=== PATIENT | male | born 1985 | race Caucasian/White ===

== ENCOUNTER 2017-10-15 22:24 | Emergency (ER) | payer OTHER ==
[2017-10-15] MEDS ORDERED: PANTOPRAZOLE 40 MG/10 ML VIAL IVP STA (22:26)
[2017-10-15] MEDS ORDERED: ONDANSETRON 4 MG/2 ML VIAL IVP STA (22:26)
[2017-10-15] MEDS ORDERED: SODIUM CHLORIDE 0.9% 500 ML IV STA (22:26)
--- NOTE | 2017-10-15 22:33 | ED ---
General Adult HPI - General Chief complaint: Overdose Stated complaint: Overdose Time Seen by Provider: 10/15/17 22:26 Source: patient, EMS, RN notes reviewed, old records reviewed Mode of arrival: EMS Limitations: no limitations - History of Present Illness Initial comments: This is a 30-year-old male to the ER for evaluation of possible overdose, patient does admit to heroin abuse stay. Patient was found by PD to mildly responsive) U saw minus girlfriend which she thought unresponsive. Patient was not needed to be given heroin. Patient's awake alert on arrival to ER, denies any other drugs or alcohol. Patient is no complaints not homicidal or suicidal - Related Data Home Medications Medication Instructions Recorded Confirmed Buprenorphine HCl/Naloxone HCl 1 each SL BID 10/06/14 10/06/14 [Suboxone 8 mg-2 mg Sl Film] Allergies Allergy/AdvReac Type Severity Reaction Status Date / Time Penicillins Allergy Unknown Verified 10/15/17 22:30 Review of Systems ROS Statement: Those systems with pertinent positive or pertinent negative responses have been documented in the HPI. ROS Other: All systems not noted in ROS Statement are negative. Past Medical History Past Medical History: No Reported History History of Any Multi-Drug Resistant Organisms: None Reported Past Surgical History: No Surgical Hx Reported Past Psychological History: No Psychological Hx Reported Smoking Status: Current every day smoker Past Alcohol Use History: Rare Past Drug Use History: Heroin, Marijuana General Exam Limitations: no limitations General appearance: alert, in no apparent distress Head exam: Present: atraumatic, normocephalic, normal inspection Eye exam: Present: normal appearance, PERRL, EOMI. Absent: scleral icterus, conjunctival injection, periorbital swelling ENT exam: Present: normal exam, mucous membranes moist Neck exam: Present: normal inspection. Absent: tenderness, meningismus, lymphadenopathy Respiratory exam: Present: normal lung sounds bilaterally. Absent: respiratory distress, wheezes, rales, rhonchi, stridor Cardiovascular Exam: Present: regular rate, normal rhythm, normal heart sounds. Absent: systolic murmur, diastolic murmur, rubs, gallop, clicks GI/Abdominal exam: Present: soft, normal bowel sounds. Absent: distended, tenderness, guarding, rebound, rigid Extremities exam: Present: normal inspection, full ROM, normal capillary refill. Absent: tenderness, pedal edema, joint swelling, calf tenderness Back exam: Present: normal inspection Neurological exam: Present: alert, oriented X3, CN II-XII intact Psychiatric exam: Present: normal affect, normal mood Skin exam: Present: warm, dry, intact, normal color. Absent: rash Course Vital Signs 10/15/17 22:26 Temperature 98.6 F Pulse Rate 111 H Respiratory 18 Rate Blood Pressure 176/98 O2 Sat by Pulse 94 L Oximetry - Reevaluation(s) Reevaluation #1: 10/15/17 22:32 Patient's awake and alert without any difficulty of shortness of breath or lethargy Medical Decision Making - Medical Decision Making 32 male the ER positive heroin overdose, history of heroin abuse has abuse heroin today, patient refusing a treatment here in the emergency room, patient informed of leg test with heroin use and heroin overdose. Patient understands serious disease and can be discharged home Disposition Clinical Impression: Suicide attempt by multiple drug overdose, Poisoning by opiate or related narcotic Disposition: HOME SELF-CARE Condition: Good Instructions: Narcotic Abuse (ED) Is patient prescribed a controlled substance at d/c from ED?: No Referrals: None,Stated [Primary Care Provider] - 1-2 days
[2017-10-15 23:40] VITALS: BP 152/91; PULSE 81; RESP 16; TEMP 97.2
== END 2017-10-15 23:39 | disposition home or self-care (01) ==
LOC: EC 22:24
DX: T40.1X2A Poisoning by heroin, intentional self-harm, initial encounter (principal); F17.200 Nicotine dependence, unspecified, uncomplicated; Z88.0 Allergy status to penicillin; Z79.891 Long term (current) use of opiate analgesic
CPT/HCPCS: 96360; 99284

== ENCOUNTER 2020-03-02 18:55 | Observation (INO) | payer OTHER ==
[2020-03-02] MEDS ORDERED: SULFAMETHOX-TMP 800-160MG 1 EACH TAB PO STA ×2 (19:44→20:05)
[2020-03-02] MEDS ORDERED: SULFAMETH-TMP DS STARTER PACK 2 TAB BTL PO STA ×2 (19:44→20:05)
[2020-03-02 19:46] LABS: Basophils # (A) 0.1 k/uL (0-0.2); Basophils % (A) 1 %; Eosinophils # (A) 0.2 k/uL (0-0.7); Eosinophils % (A) 3 %; Lymphocytes # (A) 1.7 k/uL (1.0-4.8); Lymphocytes % (A) 26 %; MCH 28.8 pg (25.0-35.0); MCHC 31.8 g/dL (31.0-37.0); MCV 90.5 fL (80.0-100.0); Mean Platelet Volume 7.9; Monocytes # (A) 0.3 k/uL (0-1.0); Monocytes % (A) 5 %; Neutrophils % (A) 62 %; Platelet Count 324 k/uL (150-450); RBC 4.53 m/uL (4.30-5.90); RDW 13.4 % (11.5-15.5); WBC 6.4 k/uL (3.8-10.6)
[2020-03-02] MEDS ORDERED: cefTRIAXone IN SWFI 1,000 MG/10 ML SYRINGE IVP STA (19:46)
[2020-03-02 19:55] LABS: ALT 69 U/L (4-49); AST 103 U/L (17-59); African American GFR (CKD) >90 (>60 ml/min/1.73 sqM); Alkaline Phosphatase 79 U/L (38-126); Anion Gap 6 mmol/L; Blood Urea Nitrogen 17 mg/dL (9-20); Carbon Dioxide 30 mmol/L (22-30); Chloride 103 mmol/L (98-107); Glucose 66 mg/dL (74-99); Non-African American GFR(CKD) >90 (>60 ml/min/1.73 sqM); Potassium 4.4 mmol/L (3.5-5.1); Sodium 139 mmol/L (137-145); Total Bilirubin 0.3 mg/dL (0.2-1.3); Total Protein 7.1 g/dL (6.3-8.2)
[2020-03-02 19:56] LABS: Calcium 9.1 mg/dL (8.4-10.2)
--- NOTE | 2020-03-02 20:05 | XR ---
EXAMINATION TYPE: XR forearm RT DATE OF EXAM: 03/02/2020 COMPARISON: NONE HISTORY: Pain and swelling TECHNIQUE: 2 views FINDINGS: I see no fracture nor dislocation. Elbow joint and wrist joint appear intact. Soft tissues appear normal. IMPRESSION: Negative right forearm exam.
--- NOTE | 2020-03-02 20:54 | US ---
EXAMINATION TYPE: US venous doppler duplex UE RT DATE OF EXAM: 03/02/2020 COMPARISON: NONE CLINICAL HISTORY: r/o dvt, svt, fluid collection . Right arm swelling and pain. No hx of DVT. Patient does not take blood thinners. Patient used heroin 3 days ago in right arm. SIDE PERFORMED: Right Right Arm: No evidence of DVT in veins imaged at this time within the right arm. IMPRESSION: No sign of deep vein thrombosis in the right arm.
--- NOTE | 2020-03-02 21:24 | ED ---
General Adult HPI - General Source: patient, RN notes reviewed, old records reviewed Mode of arrival: ambulatory Limitations: no limitations <Mihir Kirkpatrick - Last Filed: 03/02/20 21:45> <Kerri Cornejo - Last Filed: 03/05/20 21:55> - General Chief complaint: Extremity Problem,Nontraumatic Stated complaint: rt arm swelling, pain Time Seen by Provider: 03/02/20 19:09 - History of Present Illness Initial comments: 34-year-old male patient to ED for evaluation. Patient is 89 drug user. Patient reports that he injects IV drugs in his right arm. Patient reports the last 2 days having significant pain and swelling in his right arm distal radius region. Patient denies immunocompromised state, denies HIV or a spleen isn't. Denies fevers. Denies systemic symptoms. Denies any other complaints. Systemic: Pt denies fatigue, fever/chills, rash. Pt denies weakness, night sweats, weight loss. Neuro: Pt denies headache, visual disturbances, syncope or pre-syncope. HEENT: Pt denies ocular discharge or irritation, otalgia, rhinorrhea, pharyngitis or notable lymphadenopathy. Cardiopulmonary: Pt denies chest pain, SOB, heart palpitations, dyspnea on exertion. Abdominal/GI: Pt denies abdominal pain, n/v/d. : Pt denies dysuria, burning w/ urination, frequency/urgency. Denies new onset urinary or bowel incontinence. MSK: Pt denies myalgia, loss of strength or function in extremities. Neuro: Pt denies new onset weakness, paresthesias. (Mihir Kirkpatrick) - Related Data Previous Rx's Medication Instructions Recorded Cephalexin [Keflex] 500 mg PO Q12HR 1 Days #14 cap 03/04/20 Ibuprofen [Motrin] 600 mg PO Q6HR PRN #30 tab 03/04/20 Loperamide [Imodium] 2 mg PO QID PRN #30 cap 03/04/20 Ondansetron [Zofran] 4 mg PO Q8HR PRN #30 tab 03/04/20 Sulfamethox-Tmp 800-160Mg [Bactrim 1 tab PO Q12HR #12 tab 03/04/20 DS 800-160 mg] cloNIDine HCL [Catapres] 0.1 mg PO TID PRN #30 tab 03/04/20 Allergies Allergy/AdvReac Type Severity Reaction Status Date / Time Penicillins Allergy Unknown Verified 03/02/20 19:42 Review of Systems ROS Other: All systems not noted in ROS Statement are negative. <Mihir Kirkpatrick - Last Filed: 03/02/20 21:45> ROS Other: All systems not noted in ROS Statement are negative. <Kerri Cornejo - Last Filed: 03/05/20 21:55> ROS Statement: Those systems with pertinent positive or pertinent negative responses have been documented in the HPI. Past Medical History Past Medical History: No Reported History History of Any Multi-Drug Resistant Organisms: None Reported Past Surgical History: No Surgical Hx Reported Past Psychological History: No Psychological Hx Reported Smoking Status: Current every day smoker Past Alcohol Use History: Rare Past Drug Use History: Heroin, Marijuana <Mihir Kirkpatrick - Last Filed: 03/02/20 21:45> - Past Family History family Family Medical History: No Reported History <Kerri Cornejo - Last Filed: 03/05/20 21:55> General Exam Limitations: no limitations <Mihir Kirkpatrick - Last Filed: 03/02/20 21:45> - General Exam Comments Initial Comments: Constitutional: NAD, AOX3, Pt has pleasant affect. HEENT: NC/AT, trachea midline, neck supple, no lymphadenopathy. Posterior pharynx non erythematous, without exudates. External ears appear normal, without discharge. Mucous membranes moist. Eyes PERRLA, EOM intact. There is no scleral icterus. No pallor noted. Cardiopulmonary: RRR, no murmurs, rubs or gallops, no JVD noted. Lungs CTAB in anterior and posterior stephens. No peripheral edema. Abdominal exam: Abdomen soft and non-distended. Neuro: CN II-XII grossly intact. No nuchal rigidity. MSK: Mild amount of soft tissue swelling and erythema to the palmar aspect of the distal radial forearm. There is no fluctuance. No streaking. Pulses are intact and equal. (Mihir Kirkpatrick) Course Vital Signs 03/02/20 03/02/20 03/02/20 18:57 20:05 22:14 Temperature 98.2 F Pulse Rate 76 77 Respiratory 16 16 16 Rate Blood Pressure 170/93 125/84 O2 Sat by Pulse 100 Oximetry Medical Decision Making - Lab Data Result diagrams: 03/02/20 19:38 03/02/20 19:38 <Mihir Kirkpatrick - Last Filed: 03/02/20 21:45> - Lab Data Result diagrams: 03/04/20 04:35 03/04/20 04:35 <Kerri Cornejo - Last Filed: 03/05/20 21:55> - Medical Decision Making 34-year-old male patient history IV drug use ED for evaluation of some redness to his forearm. Patient does have jugular venous forearm. Ultrasound negative for DVT. Plain film negative for gas or foreign body. There is no physical exam findings consistent with abscess. Patient had a mild rash with penicillin as a child. Has never had severe allergic reactions. Shared decision making neela choi wishes to try ceftriaxone. Pt also administered bactrim. Patient evaluated as well by Dr. Cornejo. Patient will be admitted for IV antibiotics. (Mihir Kirkpatrick) I was available for consultation in the emergency department. The history and physical exam were done by the midlevel provider. I was consulted for this patients care. I reviewed the case with the midlevel provider and based on their presentation of the patient, I agree with the assessment, medical decision making and plan of care as documented. Patient evaluated by myself. Request to hospitalize patient which he agreed to. Chart was dictated using [employer] dictation software. Attempts were made to correct any dictation errors however some typographical errors may persist. Patient was seen during a national state of emergency due to the Covid-19 pandemic. (Kerri Cornejo) - Lab Data Lab Results 03/02/20 03/02/20 03/02/20 Range/Units 19:38 19:38 19:38 WBC 6.4 (3.8-10.6) k/uL RBC 4.53 (4.30-5.90) m/uL Hgb 13.0 (13.0-17.5) gm/dL Hct 41.0 (39.0-53.0) % MCV 90.5 (80.0-100.0) fL MCH 28.8 (25.0-35.0) pg MCHC 31.8 (31.0-37.0) g/dL RDW 13.4 (11.5-15.5) % Plt Count 324 (150-450) k/uL Neutrophils % 62 % Lymphocytes % 26 % Monocytes % 5 % Eosinophils % 3 % Basophils % 1 % Neutrophils # 4.0 (1.3-7.7) k/uL Lymphocytes # 1.7 (1.0-4.8) k/uL Monocytes # 0.3 (0-1.0) k/uL Eosinophils # 0.2 (0-0.7) k/uL Basophils # 0.1 (0-0.2) k/uL Sodium 139 (137-145) mmol/L Potassium 4.4 (3.5-5.1) mmol/L Chloride 103 (98-107) mmol/L Carbon Dioxide 30 (22-30) mmol/L Anion Gap 6 mmol/L BUN 17 (9-20) mg/dL Creatinine 1.06 (0.66-1.25) mg/dL Est GFR (CKD-EPI)AfAm >90 (>60 ml/min/1.73 sqM) Est GFR (CKD-EPI)NonAf >90 (>60 ml/min/1.73 sqM) Glucose 66 L (74-99) mg/dL Plasma Lactic Acid Keaton 1.7 (0.7-2.0) mmol/L Calcium 9.1 (8.4-10.2) mg/dL Total Bilirubin 0.3 (0.2-1.3) mg/dL AST 103 H (17-59) U/L ALT 69 H (4-49) U/L Alkaline Phosphatase 79 (38-126) U/L Total Protein 7.1 (6.3-8.2) g/dL Albumin 4.0 (3.5-5.0) g/dL Disposition Is patient prescribed a controlled substance at d/c from ED?: No <Mihir Kirkpatrick - Last Filed: 03/02/20 21:45> <Kerri Cornejo - Last Filed: 03/05/20 21:55> Clinical Impression: Cellulitis, IV drug user Disposition: ADMITTED IP TO THIS [facility] Condition: Fair
[2020-03-02] MEDS ORDERED: NALOXONE 0.4 MG/ML 1 ML VIAL IV PRN (21:44)
[2020-03-02] MEDS ORDERED: IBUPROFEN 600 MG TAB PO PRN (21:46)
[2020-03-02] MEDS ORDERED: ACETAMINOPHEN TAB 500 MG TAB PO PRN (21:46)
[2020-03-02] MEDS ORDERED: VANCOMYCIN 1,250 MG in SODIUM CHLORIDE 0.9% 250 ML IVPB ONE (22:00)
[2020-03-02] MEDS: MORPHINE SULFATE 2 MG/ML SYRINGE IVP PRN (23:27)
--- NOTE | 2020-03-02 23:31 | P.HPIM ---
History of Present Illness H&P Date: 03/02/20 Chief Complaint: swelling over the right forearm 34 year old male with history of IVDA patient presenting with increase swelling and discomfort over the dorsum of his right forearm, which he noticed over last two days since he injected heroin in his right anticubital fossa. he denies any history of similar conditions. denies any other traumas. denies any bactremia or endocarditis in the past. denies HIV, or hepatitis. denies sharing needles, but he does re-use his own needles. 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 denies any fever, chest pain or trouble breathing. denies any cough , abd pain , nausea or vomiting. Denies any numbness or tingling at his finger tips denies heavy alcohol use, and only admits to occasional social use. he admits to smoking marijuana and tobacco smoking half a pack daily in the ED, blood work unremarkable and vital sings stable, patient admitted for IV antibiotics and close monitoring of his right forearm swelling Review of Systems all systems reviewed , pertinent positives and negatives per HPI Past Medical History Past Medical History: No Reported History History of Any Multi-Drug Resistant Organisms: None Reported Past Surgical History: No Surgical Hx Reported Past Anesthesia/Blood Transfusion Reactions: No Reported Reaction Past Psychological History: No Psychological Hx Reported Smoking Status: Current every day smoker Past Alcohol Use History: Rare Past Drug Use History: Heroin, Marijuana - Past Family History family Family Medical History: No Reported History Medications and Allergies Home Medications Medication Instructions Recorded Confirmed Type Ibuprofen [Motrin Ib] 600 mg PO Q8H PRN 03/02/20 03/02/20 History Multivitamin [Multivitamins Adult 1 tab PO DAILY 03/02/20 03/02/20 History Gummies] Allergies Allergy/AdvReac Type Severity Reaction Status Date / Time Penicillins Allergy Unknown Verified 03/02/20 19:42 Physical Exam Vitals: Vital Signs Temp Pulse Pulse Resp BP BP Pulse Ox 03/02/20 22:52 98.6 F 83 16 136/80 83 L 03/02/20 22:34 98.2 F 77 16 125/84 100 03/02/20 22:14 16 03/02/20 20:05 77 16 125/84 03/02/20 18:57 98.2 F 76 16 170/93 100 Intake and Output 03/02/20 03/02/20 03/03/20 14:59 22:59 06:59 Other: Voiding Method Toilet Weight 73.845 kg General: non toxic, no distress, appears at stated age, normal weight Derm: no unusual rashes/lesions no unusual ecchymoses, warm, dry. swelling over the distal portion of the right forearm Head: atraumatic, normocephalic, symmetric Eyes: EOMI, anicteric sclera, pupils equal round reactive to light ENT: Nose and ears atraumatic, no thrush, no pharyngeal erythema Neck: No thyromegaly, no cervical lymphadenopathy, trachea midline, supple Mouth: no lip lesion, mucus membranes moist Cardiovascular: S1S2 reg, no murmur, positive posterior tibial pulse bilateral, no edema, capillary refill immediate Lungs: CTA bilateral, no rhonchi, no rales , no accessory muscle use Abdominal: soft, no tenderness to palpation no guarding, no appreciable organomegaly, normal bowel sounds Ext: no gross muscle atrophy, muscle strength 5 out of 5 in all 4 extremities grossly, no contractures, Neuro: CN II-XI grossly intact, light touch intact all 4 extremities, finger to nose within normal limits, Psych: Alert, oriented, appropriate affect Results CBC & Chem 7: 03/02/20 19:38 03/02/20 19:38 Labs: Abnormal Lab Results - Last 24 Hours (Table) 03/02/20 Range/Units 19:38 Glucose 66 L (74-99) mg/dL AST 103 H (17-59) U/L ALT 69 H (4-49) U/L Thrombosis Risk Factor Assmnt - Choose All That Apply Any of the Below Risk Factors Present?: No Other Risk Factors: No Thrombosis Risk Factor Assessment Level: Very Low Risk Assessment and Plan Assessment: cellulitis of the right forearm secondary to IV drug abuse pain control elevate arm blood culture antibiotics empiric monitor for worsening swelling, or early signs of compartment syndrome neurovascular exam q2-4 hours NSAIDs polysubstance abuse counseled to quit drug of abuse morphine for pain control , also helps with heroin withdrawal tobacco smoking nicotine replacement therapy full code DVT PPX , mechanical anticipated length of stay < [address]: Home
[2020-03-02 23:52] LABS: Glucose,Whole Blood 95 mg/dL (75-99)
[2020-03-02] MEDS: SODIUM CHLORIDE 0.9% 1,000 ML IV SCH (23:57)
[2020-03-03] MEDS: SODIUM CHLORIDE 0.9% 1,000 ML IV SCH ×3 (07:47→20:00)
[2020-03-03] MEDS: NICOTINE 14MG/24HR PATCH TRANSDERM SCH (07:47)
[2020-03-03] MEDS: MORPHINE SULFATE 2 MG/ML SYRINGE IVP PRN ×3 (07:51→21:47)
[2020-03-03] MEDS ORDERED: VANCOMYCIN IV PER PHARMACY 1 EACH MISC MISCELLANE PRN (09:00)
[2020-03-03] MEDS ORDERED: LOPERAMIDE 2 MG CAP PO PRN (09:16)
[2020-03-03] MEDS ORDERED: ONDANSETRON 4 MG/2 ML VIAL IVP PRN (09:16)
[2020-03-03] MEDS ORDERED: VANCOMYCIN 1,250 MG in SODIUM CHLORIDE 0.9% 250 ML IVPB SCH (10:00)
[2020-03-03] MEDS: KETOROLAC 15 MG/ML 1 ML VIAL IVP SCH ×3 (10:30→23:09)
[2020-03-03] MEDS: cloNIDine HCL 0.1 MG TAB PO PRN ×3 (10:30→23:59)
[2020-03-03 11:25] LABS: African American GFR (CKD) >90 (>60 ml/min/1.73 sqM); Non-African American GFR(CKD) >90 (>60 ml/min/1.73 sqM)
--- NOTE | 2020-03-03 13:11 | P.PN ---
Subjective Progress Note Date: 03/03/20 (delayed charting seen at 0830) Principal diagnosis: right arm pain Patient is a 34-year-old male with history of IVDA who presented to the ER with complaints of right forearm discomfort after injecting heroin in his right antecubital fossa. In the ER he underwent an extensive evaluation. On arrival he was hypertensive with a blood pressure 170/93. Laboratory analysis showed a normal white blood cell count, AST 103, ALT 69 glucose of 66. Venous Doppler of the right upper extremity was negative, x-ray of the elbow joint and redness was negative. He was started on vancomycin and admitted for cellulitis of the right forearm. Patient seen and examined at bedside. He states that his pain is less severe in his right forearm. He is not having any nausea, vomiting, or diarrhea. He reports that he has been injecting into his right antecubital fossa with heroin. He had been sober for 17 months and relapsed approximately 2 months ago. He has been using heroin daily. He is encouraged to stop. He wants to do this and realizes that he will likely detox during the hospital stay. We discussed that I will order Toradol for his muscle cramping and pain, Imodium to help with his diarrhea, Zofran for nausea, and Catapres for other withdrawal symptoms. He is in agreement with this plan of care. He states his sister is actively male in his life and he is motivated to quit. General: non toxic, no distress, appears at stated age Derm: warm, dry Head: atraumatic, normocephalic, symmetric Eyes: EOMI, no lid lag, anicteric sclera Mouth: no lip lesion, mucus membranes moist Cardiovascular: S1S2 reg, no murmur, positive posterior tibial pulse bilateral, Lungs: CTA bilateral, no rhonchi, no rales , no accessory muscle use Abdominal: soft, nontender to palpation, no guarding, no appreciable organomegaly Ext: + erythema right wrist, ROM intact in wrist and ringer, Forearm veins no palpable. no gross muscle atrophy, no edema, no contractures Neuro: CN II-XI grossly intact, no focal neuro deficits Psych: Alert, oriented, appropriate affect Cellulitis of the right forearm associated with IVDA -Continue with vancomycin -Follow renal profile -Follow fever profile -Suspect home in a.m. after 24 hours of IV antibiotics Elevated liver enzymes -Check hepatitis profile -Repeat liver enzymes in a.m. IVDA -Suspect patient will go through withdrawal. Supportive care with Toradol, Zofran, Imodium, and Catapres. DVT prophylaxis: SCDs Discussed with: Patient, nursing Anticipated discharge: in AM Anticipated discharge place: home A total of 35 minutes was spent on the care of this complex patient more than 50% of the time was spent in counseling and care coordination. Objective - Vital Signs Vital signs: Vital Signs Temp 98.2 F 03/03/20 07:54 Pulse 67 03/03/20 07:54 Resp 16 03/03/20 07:54 BP 123/72 03/03/20 07:54 Pulse Ox 100 03/03/20 07:54 Intake & Output 03/02/20 03/03/20 03/03/20 18:59 06:59 18:59 Weight 73.845 kg 73.845 kg Other: Voiding Method Toilet Toilet # Voids 1 1 - Labs CBC & Chem 7: 03/02/20 19:38 03/03/20 10:23 Labs: Abnormal Lab Results - Last 24 Hours (Table) 03/02/20 Range/Units 19:38 Glucose 66 L (74-99) mg/dL AST 103 H (17-59) U/L ALT 69 H (4-49) U/L
[2020-03-03] MEDS: VANCOMYCIN 1,250 MG in SODIUM CHLORIDE 0.9% 250 ML IVPB SCH (16:59)
[2020-03-03] MEDS ORDERED: MELATONIN 3 MG TABLET PO SCH (22:30)
[2020-03-04] MEDS: VANCOMYCIN 1,250 MG in SODIUM CHLORIDE 0.9% 250 ML IVPB SCH (01:34)
[2020-03-04 05:01] LABS: HCT 36.4 % (39.0-53.0); HGB 11.8 gm/dL (13.0-17.5); MCH 29.6 pg (25.0-35.0); MCHC 32.3 g/dL (31.0-37.0); MCV 91.4 fL (80.0-100.0); Mean Platelet Volume 8.5; Platelet Count 267 k/uL (150-450); RBC 3.98 m/uL (4.30-5.90); RDW 13.3 % (11.5-15.5); WBC 6.2 k/uL (3.8-10.6)
[2020-03-04 05:07] LABS: Prothrombin Time 10.1 sec (9.0-12.0)
[2020-03-04 05:19] LABS: ALT 38 U/L (4-49); AST 35 U/L (17-59); African American GFR (CKD) >90 (>60 ml/min/1.73 sqM); Albumin 2.7 g/dL (3.5-5.0); Alkaline Phosphatase 56 U/L (38-126); Anion Gap 3 mmol/L; Blood Urea Nitrogen 9 mg/dL (9-20); Calcium 8.3 mg/dL (8.4-10.2); Carbon Dioxide 24 mmol/L (22-30); Chloride 109 mmol/L (98-107); Glucose 103 mg/dL (74-99); Non-African American GFR(CKD) >90 (>60 ml/min/1.73 sqM); Sodium 136 mmol/L (137-145); Total Bilirubin 0.3 mg/dL (0.2-1.3); Total Protein 5.4 g/dL (6.3-8.2)
[2020-03-04] MEDS: KETOROLAC 15 MG/ML 1 ML VIAL IVP SCH (06:04)
[2020-03-04] MEDS: MORPHINE SULFATE 2 MG/ML SYRINGE IVP PRN (06:10)
[2020-03-04] MEDS: SODIUM CHLORIDE 0.9% 1,000 ML IV SCH (08:08)
[2020-03-04] MEDS: NICOTINE 14MG/24HR PATCH TRANSDERM SCH (08:10)
[2020-03-04] MEDS: cloNIDine HCL 0.1 MG TAB PO PRN (08:13)
[2020-03-04 08:22] VITALS: BP 129/71; PULSE 69; RESP 16; TEMP 98.6
[2020-03-04] MEDS ORDERED: VANCOMYCIN TROUGH DUE 1 EACH MISC MISCELLANE ONE (09:00)
--- NOTE | 2020-03-04 13:00 | P.DS ---
Providers Date of admission: 03/02/20 21:33 Expected date of discharge: 03/04/20 Attending physician: Hiral Gold MD Primary care physician: [facility] Hospital Course: Discharge Diagnosis: Cellulitis of the right forearm with IVDA Increased LFTs IVDA Hospital Course: Patient is a 34-year-old male with history of IVDA who presented to the ER with complaints of right forearm discomfort after injecting heroin in his right antecubital fossa. In the ER he underwent an extensive evaluation. On arrival he was hypertensive with a blood pressure 170/93. Laboratory analysis showed a normal white blood cell count, AST 103, ALT 69 glucose of 66. Venous Doppler of the right upper extremity was negative, x-ray of the elbow joint and redness was negative. He was started on vancomycin and admitted for cellulitis of the right forearm. He was monitored overnight. The swelling and redness in his arm resolved. He remained afebrile and his white blood cell, was normal. He was determined stable for discharge home. He'll complete a course of Bactrim to cover MRSA and Keflex to cover strep. He is motivated to stop using intravenous drugs. I provided him with a comfort pack prescription for Motrin, Zofran, Imodium, and Catapres. He has already set up a sponsor. He plans on going home. His sister. Discharged in stable condition. Patient seen and examined at bedside. Arm is much better, pain improved. He is happy with the progress is made. Vital signs reviewed and stable. General: non toxic, no distress, appears at stated age Derm: No erythema of the right forearm or wrist. warm, dry Head: atraumatic, normocephalic, symmetric Eyes: EOMI, no lid lag, anicteric sclera Mouth: no lip lesion, mucus membranes moist Cardiovascular: S1S2 reg, no murmur, positive posterior tibial pulse bilateral, Lungs: CTA bilateral, no rhonchi, no rales , no accessory muscle use Abdominal: soft, nontender to palpation, no guarding, no appreciable organomegaly Ext: no gross muscle atrophy, no edema, no contractures Neuro: CN II-XI grossly intact, no focal neuro deficits Psych: Alert, oriented, appropriate affect A total of 25 minutes of time were spent preparing this complex discharge summary . Patient Condition at Discharge: Fair Plan - Discharge Summary Discharge Rx Participant: No New Discharge Prescriptions: New Loperamide [Imodium] 2 mg PO QID PRN #30 cap PRN Reason: Diarrhea Sulfamethox-Tmp 800-160Mg [Bactrim DS 800-160 mg] 1 tab PO Q12HR #12 tab cloNIDine HCL [Catapres] 0.1 mg PO TID PRN #30 tab PRN Reason: Alcohol Withdrawal Cephalexin [Keflex] 500 mg PO Q12HR 1 Days #14 cap Ibuprofen [Motrin] 600 mg PO Q6HR PRN #30 tab PRN Reason: Pain Ondansetron [Zofran] 4 mg PO Q8HR PRN #30 tab PRN Reason: Nausea And Vomiting Discontinued Ibuprofen [Motrin Ib] 600 mg PO Q8H PRN PRN Reason: Pain Multivitamin [Multivitamins Adult Gummies] 1 tab PO DAILY Discharge Medication List Cephalexin [Keflex] 500 mg PO Q12HR 1 Days #14 cap 03/04/20 [Rx] Ibuprofen [Motrin] 600 mg PO Q6HR PRN #30 tab 03/04/20 [Rx] Loperamide [Imodium] 2 mg PO QID PRN #30 cap 03/04/20 [Rx] Ondansetron [Zofran] 4 mg PO Q8HR PRN #30 tab 03/04/20 [Rx] Sulfamethox-Tmp 800-160Mg [Bactrim DS 800-160 mg] 1 tab PO Q12HR #12 tab 03/04/20 [Rx] cloNIDine HCL [Catapres] 0.1 mg PO TID PRN #30 tab 03/04/20 [Rx] Follow up Appointment(s)/Referral(s): [facility] [Primary Care Provider] - 1-2 days Patient Instructions/Handouts: Cellulitis (GEN), Narcotic Use Disorder (GEN) Activity/Diet/Wound Care/Special Instructions: Activity: as tolerated Diet: regular, stay hydrated Discharge Disposition: HOME SELF-CARE
== END 2020-03-04 09:40 | disposition home or self-care (01) ==
LOC: EC 18:55 → 1SOBS 21:33
PROVIDERS: ADMIT Internal Medicine; ATTEND Internal Medicine
DX: L03.113 Cellulitis of right upper limb (principal); F11.10 Opioid abuse, uncomplicated; F17.210 Nicotine dependence, cigarettes, uncomplicated; Z88.0 Allergy status to penicillin
CPT/HCPCS: 96366 ×3; 96375 ×3; 96376 ×2; 96365; 99285; 36415; 80053 ×2; 82565; 83605; 85025; 85027; 80202; 85610; 87040; 73090; 93971; G0378 ×3; S4990 ×2; J3370 ×3; J0696; J2270 ×3; J1885 ×2

== ENCOUNTER 2020-11-01 15:23 | Emergency (ER) | payer OTHER ==
[2020-11-01 15:34] VITALS: BP 122/79; PULSE 76; RESP 16; TEMP 98
[2020-11-01] MEDS ORDERED: IBUPROFEN 600 MG TAB PO STA (15:41)
[2020-11-01] MEDS ORDERED: HYDROcodone/APAP 5-325MG 1 EACH TAB PO STA (15:41)
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
--- NOTE | 2020-11-01 16:56 | XR ---
EXAMINATION TYPE: XR knee 4V LT DATE OF EXAM: 11/01/2020 COMPARISON: None HISTORY: Left knee pain and swelling TECHNIQUE: 4 view left knee FINDINGS: There is some superficial soft tissue swelling. A small joint effusion is present. No acute fractures or dislocations are evident. Joint spaces appear preserved. Patella lurdes may be present. C linical correlation recommended. Follow-up studies can be performed 7-10 days from acute trauma for continued pain IMPRESSION: 1. No acute osseous abnormality. 2. Small joint effusion. 3. Superficial soft tissue swelling. 4. Clinical correlation recommended for patella lurdes
== END 2020-11-01 18:05 | disposition home or self-care (01) ==
LOC: EC 15:23
DX: S89.92XA Unspecified injury of left lower leg, initial encounter (principal); M25.462 Effusion, left knee; F17.210 Nicotine dependence, cigarettes, uncomplicated; Z79.891 Long term (current) use of opiate analgesic; F12.90 Cannabis use, unspecified, uncomplicated; Z88.0 Allergy status to penicillin; V18.0XXA Pedal cycle driver injured in noncollision transport accident in nontraffic accident, initial encounter; Y93.55 Activity, bike riding
CPT/HCPCS: 99283

== ENCOUNTER 2020-11-22 23:31 | Observation (INO) | payer OTHER ==
[2020-11-23] MEDS ORDERED: SODIUM CHLORIDE 0.9% 500 ML 500 ML IV STA (00:13)
[2020-11-23] MEDS ORDERED: ONDANSETRON 4 MG/2 ML VIAL IVP STA (00:13)
[2020-11-23] MEDS ORDERED: SODIUM CHLORIDE 0.9% 1,000 ML IV STA ×2 (00:13)
[2020-11-23] MEDS ORDERED: DIAZEPAM 5 MG/ML 2 ML INJ IVP STA (00:14)
--- NOTE | 2020-11-23 00:14 | ED ---
Overdose HPI - General Chief Complaint: Overdose Stated Complaint: Withdraw Time Seen by Provider: 11/23/20 00:12 Source: patient, EMS, RN notes reviewed, old records reviewed Mode of arrival: EMS Limitations: no limitations - History of Present Illness Initial Comments: This is a 35-year-old male. Patient presents today with acute psychosis and delirium state that he did take overdose today and does abuse multiple drugs and also is having an episode of withdrawal. Patient states he is restless he cannot sleep and is claiming that bugs are climbing Out of his skin. Patient is wide-eyed, very depressed and is complaining of suicidal thoughts. MD Complaint: intentional overdose (In suicide attempt), accidental overdose, other (Also experiencing withdrawal symptoms from illicit drugs) - Related Data Home Medications Medication Instructions Recorded Confirmed Ibuprofen [Motrin Ib] 400 mg PO Q8H PRN 11/01/20 11/01/20 Previous Rx's Medication Instructions Recorded Ibuprofen [Motrin] 600 mg PO Q8HR PRN #20 tab 11/01/20 Allergies Allergy/AdvReac Type Severity Reaction Status Date / Time Penicillins Allergy Unknown Verified 11/01/20 16:16 Review of Systems ROS Statement: Those systems with pertinent positive or pertinent negative responses have been documented in the HPI. ROS Other: All systems not noted in ROS Statement are negative. Past Medical History Past Medical History: No Reported History History of Any Multi-Drug Resistant Organisms: None Reported Past Surgical History: No Surgical Hx Reported Past Anesthesia/Blood Transfusion Reactions: No Reported Reaction Past Psychological History: No Psychological Hx Reported Smoking Status: Current every day smoker Past Alcohol Use History: Rare Past Drug Use History: Heroin, Marijuana - Past Family History family Family Medical History: No Reported History General Exam Limitations: altered mental status, physical limitation General appearance: alert, appears intoxicated, anxious Head exam: Present: atraumatic, normocephalic, normal inspection Eye exam: Present: normal appearance, PERRL, EOMI. Absent: scleral icterus, conjunctival injection, periorbital swelling ENT exam: Present: normal exam, mucous membranes dry Neck exam: Present: normal inspection. Absent: tenderness, meningismus, lymphadenopathy Respiratory exam: Present: normal lung sounds bilaterally. Absent: respiratory distress, wheezes, rales, rhonchi, stridor Cardiovascular Exam: Present: regular rate, normal rhythm, normal heart sounds. Absent: systolic murmur, diastolic murmur, rubs, gallop, clicks GI/Abdominal exam: Present: soft, normal bowel sounds. Absent: distended, tenderness, guarding, rebound, rigid Extremities exam: Present: normal inspection, full ROM, normal capillary refill. Absent: tenderness, pedal edema, joint swelling, calf tenderness Back exam: Present: normal inspection Neurological exam: Present: alert, oriented X3, CN II-XII intact Psychiatric exam: Present: normal affect, normal mood Skin exam: Present: warm, dry, intact, normal color. Absent: rash Course Vital Signs 11/23/20 11/23/20 11/23/20 01:03 02:07 03:58 Temperature 97.9 F Pulse Rate 78 81 88 Respiratory 22 18 18 Rate Blood Pressure 110/74 124/84 114/77 O2 Sat by Pulse 100 100 95 Oximetry - Reevaluation(s) Reevaluation #1: 11/23/20 04:02 Medical record is reviewed Reevaluation #2: 11/23/20 04:02 Patient is becoming improved with supportive care Reevaluation #3: 11/23/20 04:02 Patient is still remained acutely psychotic unsure if it is overdose or withdrawal - Consultations Consultation #1: Spoke with Dr. Whitman who agrees to admit the patient Medical Decision Making - Medical Decision Making 35 male to the ER for evaluation patient has multiple issues including depression suicidal thoughts. He states he did take overdose today of unknown medications is suicidal but also with dried from history of illicit drug abuse. Patient will be admitted for supportive care and psychiatric evaluation - Lab Data Result diagrams: 11/23/20 01:14 11/23/20 01:14 Lab Results 11/23/20 11/23/20 Range/Units 01:14 01:14 WBC 6.0 (3.8-10.6) k/uL RBC 4.35 (4.30-5.90) m/uL Hgb 12.4 L (13.0-17.5) gm/dL Hct 37.1 L (39.0-53.0) % MCV 85.3 (80.0-100.0) fL MCH 28.4 (25.0-35.0) pg MCHC 33.3 (31.0-37.0) g/dL RDW 14.1 (11.5-15.5) % Plt Count 311 (150-450) k/uL MPV 8.9 Neutrophils % 70 % Lymphocytes % 20 % Monocytes % 6 % Eosinophils % 2 % Basophils % 1 % Neutrophils # 4.2 (1.3-7.7) k/uL Lymphocytes # 1.2 (1.0-4.8) k/uL Monocytes # 0.4 (0-1.0) k/uL Eosinophils # 0.1 (0-0.7) k/uL Basophils # 0.0 (0-0.2) k/uL Sodium 141 (137-145) mmol/L Potassium 4.4 (3.5-5.1) mmol/L Chloride 107 (98-107) mmol/L Carbon Dioxide 26 (22-30) mmol/L Anion Gap 8 mmol/L BUN 11 (9-20) mg/dL Creatinine 0.80 (0.66-1.25) mg/dL Est GFR (CKD-EPI)AfAm >90 (>60 ml/min/1.73 sqM) Est GFR (CKD-EPI)NonAf >90 (>60 ml/min/1.73 sqM) Glucose 111 H (74-99) mg/dL Calcium 8.9 (8.4-10.2) mg/dL Phosphorus 3.1 (2.5-4.5) mg/dL Magnesium 2.1 (1.6-2.3) mg/dL Total Bilirubin 0.3 (0.2-1.3) mg/dL AST 21 (17-59) U/L ALT 19 (4-49) U/L Alkaline Phosphatase 108 (38-126) U/L Creatine Kinase 53 L (55-170) U/L Total Protein 6.4 (6.3-8.2) g/dL Albumin 3.4 L (3.5-5.0) g/dL Disposition Clinical Impression: Depression, Acute anxiety, Polysubstance abuse, Psychosis, Drug withdrawal, Delirium, IV drug user, Drug-induced psychotic disorder Disposition: ADMITTED IP TO THIS HOSP Condition: Fair Is patient prescribed a controlled substance at d/c from ED?: No
[2020-11-23] MEDS ORDERED: cloNIDine 0.3 MG/24HR PATCH TRANSDERM ONE (00:20)
[2020-11-23 01:47] LABS: Basophils % (A) 1 %; Eosinophils # (A) 0.1 k/uL (0-0.7); Eosinophils % (A) 2 %; HCT 37.1 % (39.0-53.0); HGB 12.4 gm/dL (13.0-17.5); Lymphocytes # (A) 1.2 k/uL (1.0-4.8); Lymphocytes % (A) 20 %; MCH 28.4 pg (25.0-35.0); MCHC 33.3 g/dL (31.0-37.0); MCV 85.3 fL (80.0-100.0); Mean Platelet Volume 8.9; Monocytes # (A) 0.4 k/uL (0-1.0); Monocytes % (A) 6 %; Neutrophils # (A) 4.2 k/uL (1.3-7.7); Neutrophils % (A) 70 %; Platelet Count 311 k/uL (150-450); RBC 4.35 m/uL (4.30-5.90); RDW 14.1 % (11.5-15.5)
[2020-11-23 02:03] LABS: ALT 19 U/L (4-49); AST 21 U/L (17-59); African American GFR (CKD) >90 (>60 ml/min/1.73 sqM); Albumin 3.4 g/dL (3.5-5.0); Alkaline Phosphatase 108 U/L (38-126); Anion Gap 8 mmol/L; Blood Urea Nitrogen 11 mg/dL (9-20); Calcium 8.9 mg/dL (8.4-10.2); Carbon Dioxide 26 mmol/L (22-30); Chloride 107 mmol/L (98-107); Creatine Kinase 53 U/L (55-170); Glucose 111 mg/dL (74-99); Magnesium 2.1 mg/dL (1.6-2.3); Non-African American GFR(CKD) >90 (>60 ml/min/1.73 sqM); Phosphorus 3.1 mg/dL (2.5-4.5); Potassium 4.4 mmol/L (3.5-5.1); Sodium 141 mmol/L (137-145); Total Bilirubin 0.3 mg/dL (0.2-1.3); Total Protein 6.4 g/dL (6.3-8.2)
[2020-11-23] MEDS ORDERED: diphenhydrAMINE 50 MG/ML 1 ML VIAL IVP STA (03:24)
[2020-11-23] MEDS ORDERED: LORazepam 2 MG/ML INJ IV STA (03:24)
[2020-11-23] MEDS ORDERED: NALOXONE 0.4 MG/ML 1 ML VIAL IV PRN (03:25)
[2020-11-23] MEDS ORDERED: THIAMINE 100 MG/ML 2 ML VIAL IM STA (03:30)
--- NOTE | 2020-11-23 11:51 | P.HPIM ---
History of Present Illness H&P Date: 11/23/20 HISTORY OF PRESENT ILLNESS This is a 35-year-old male patient of [facility] with past history of heroin use, fentanyl used marijuana use, tobacco use and dependence. Patient states that he has been using "Dope" fentanyl and heroin for the past 10 years. He has been through rehab 45 times and last time it was in 2017 in [place]. He denies any alcohol abuse. He states he has had cellulitis but not from injection sites. Patient apparently has been using IV drugs 4 times a day for the every day for the past 9 months and yesterday he tried to stop and skipped some doses but then felt that his skin was crawling, he was delusional and hallucinating. He states he has depression but no suicidal ideation. Patient has a sitter at the bedside. He states he does not follow with a psychiatrist. Patient came into [facility] emergency center for evaluation. He was found to be afebrile, heart rate 78, blood pressure 110/74, pulse ox 100% on room air. WBC 6, hemoglobin 12.4, platelet count 311. Electrolytes and renal function normal. Blood sugar 111. Liver function tests were normal. CK 53. Patient has been admitted to the Medr floor and consult in place with psychiatry and social work consult added for drug addiction rehab resources. Patient is status post 2-1/2 L of IV fluids. He has been started on the Ativan CIWA protocol. REVIEW OF SYSTEMS Constitutional: No fever, no chills, no night sweats. No weight change. No weakness, fatigue or lethargy. No daytime sleepiness. EENT: No headache. No blurred vision or double vision, no loss of vision. No loss of Hearing, no ringing in the ears, no dizziness. No nasal drainage or congestion. No epistaxis. No sore throat. Lungs: No shortness of breath, cough, no sputum production. No wheezing. Cardiovascular: No chest pain, no lower extremity edema. No palpitations. No paroxysmal nocturnal dyspnea. No orthopnea. No lightheadedness or dizziness. No syncopal episodes. Abdominal: No abdominal pain. No nausea, vomiting. No diarrhea. No co nstipation. No bloody or tarry stools.. No loss of appetite. Genitourinary: No dysuria, increased frequency, urgency. No urinary retention. Musculoskeletal: No myalgias. No muscle weakness, no gait dysfunction, no frequent falls. No back pain. No neck pain. Integumentary: No wounds, no lesions. No rash or pruritus. No unusual bruising. No change in hair or nails. Neurologic: No aphasia. No facial droop. No change in mentation. No head injury. No headache. No paralysis. No paresthesia. Psychiatric: Reports depression. Reports anxiety. Denies suicidal ideation at time of evaluation. Endocrine: No abnormal blood sugars. No weight change. SOCIAL HISTORY Patient is a smoker of one pack per day since he was 14 years of age. Patient has been using IV drugs for the past 10 years. He is single. He works in a factory. He denies any alcohol use. Patient has gone through substance abuse rehab the last time in 2017 in [place]. PHYSICAL EXAMINATION Gen: This is a 35-year-old male. He appears to be in no acute distress. HEENT: Head is atraumatic, normocephalic. Pupils equal, round. Sclerae is anicteric. NECK: Supple. No JVD. No lymphadenopathy. No thyromegaly. LUNGS: Clear to auscultation. No wheezes or rhonchi. No intercostal retractions. HEART: Regular rate and rhythm. No murmur. ABDOMEN: Soft. Bowel sounds are present. No masses. No tenderness. EXTREMITIES: No pedal edema. No calf tenderness. Multiple injection sites noted along the left arm most concentrated at the antecubital area. NEUROLOGICAL: Patient is awake, alert and oriented x3. Cranial nerves 2 through 12 are grossly intact. ASSESSMENT AND PLAN 1. Multi-substance abuse, IV heroin and IV fentanyl use. Patient started on CIWA protocol. Psychiatry consult. Patient has a auto club safety program coordinator at the bedside. 2. Depression. Patient voiced suicidal ideation in the emergency center. He currently denies suicidal ideation. Psychiatry consult. 3. Tobacco use and dependence. Start nicotine patch 21 mg daily. 4. GI prophylaxis. Protonix 40 mg daily. 5. DVT prophylaxis. BEENA hose and ambulation. Patient placed as observation status. DISCHARGE PLAN Substance abuse rehab. Impression and plan of care have been directed as dictated by the signing physician. Catherine Moffett nurse practitioner acting as scribe for signing physician. Past Medical History Past Medical History: No Reported History History of Any Multi-Drug Resistant Organisms: None Reported Past Surgical History: No Surgical Hx Reported Past Anesthesia/Blood Transfusion Reactions: No Reported Reaction Past Psychological History: No Psychological Hx Reported Smoking Status: Current every day smoker Past Alcohol Use History: Rare Past Drug Use History: Heroin, Marijuana - Past Family History family Family Medical History: No Reported History Medications and Allergies Home Medications Medication Instructions Recorded Confirmed Type No Known Home Medications 11/23/20 11/23/20 History Allergies Allergy/AdvReac Type Severity Reaction Status Date / Time Penicillins Allergy Unknown Verified 11/23/20 08:32 Physical Exam Vitals: Vital Signs Temp Pulse Pulse Resp BP BP Pulse Ox 11/23/20 07:40 98.9 F 73 18 103/65 100 11/23/20 04:30 98.3 F 75 18 118/74 99 11/23/20 03:58 88 18 114/77 95 11/23/20 02:07 81 18 124/84 100 11/23/20 01:03 97.9 F 78 22 110/74 100 Intake and Output 11/22/20 11/23/20 11/23/20 22:59 06:59 14:59 Other: Voiding Method Toilet Urinal Weight 72.575 kg Results CBC & Chem 7: 11/23/20 01:14 11/23/20 01:14 Labs: Abnormal Lab Results - Last 24 Hours (Table) 11/23/20 11/23/20 Range/Units 01:14 01:14 Hgb 12.4 L (13.0-17.5) gm/dL Hct 37.1 L (39.0-53.0) % Glucose 111 H (74-99) mg/dL Creatine Kinase 53 L (55-170) U/L Albumin 3.4 L (3.5-5.0) g/dL Thrombosis Risk Factor Assmnt - Choose All That Apply Any of the Below Risk Factors Present?: No Other Risk Factors: No Other congenital or acquired thrombophilia - If yes, enter type in comment: No Thrombosis Risk Factor Assessment Level: Very Low Risk
[2020-11-23] MEDS: LORazepam 2 MG/ML INJ IV PRN ×4 (12:59→22:54)
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
[2020-11-23] MEDS: THIAMINE 100 MG TAB PO SCH (16:02)
[2020-11-23] MEDS: NICOTINE 21MG/24HR PATCH TRANSDERM SCH (16:02)
[2020-11-24] MEDS: LORazepam 2 MG/ML INJ IV PRN ×6 (03:20→22:03)
[2020-11-24 07:05] LABS: African American GFR (CKD) >90 (>60 ml/min/1.73 sqM); Anion Gap 9 mmol/L; Blood Urea Nitrogen 9 mg/dL (9-20); Calcium 9.6 mg/dL (8.4-10.2); Carbon Dioxide 22 mmol/L (22-30); Chloride 108 mmol/L (98-107); Glucose 114 mg/dL (74-99); Magnesium 2.1 mg/dL (1.6-2.3); Non-African American GFR(CKD) >90 (>60 ml/min/1.73 sqM); Phosphorus 3.7 mg/dL (2.5-4.5); Sodium 139 mmol/L (137-145)
[2020-11-24] MEDS: NICOTINE 21MG/24HR PATCH TRANSDERM SCH (08:32)
[2020-11-24 09:47] LABS: Basophils # (A) 0.05 X 10*3/uL (0.00-0.10); Basophils % (A) 0.6 %; Eosinophils # (A) 0.02 X 10*3/uL (0.04-0.35); Eosinophils % (A) 0.2 %; HCT 40.1 % (39.6-50.0); HGB 13.3 g/dL (13.0-17.0); Lymphocytes # (A) 2.01 X 10*3/uL (0.90-5.00); Lymphocytes % (A) 23.2 %; MCH 27.8 pg (27.0-32.0); MCHC 33.2 g/dL (32.0-37.0); MCV 83.7 fL (80.0-97.0); Mean Platelet Volume 11.8 fL (9.5-12.2); Monocytes # (A) 0.51 X 10*3/uL (0.20-1.00); Monocytes % (A) 5.9 %; Neutrophils # (A) 6.04 X 10*3/uL (1.80-7.70); Neutrophils % (A) 69.6 %; Platelet Count 204 X 10*3/uL (140-440); RBC 4.79 X 10*6/uL (4.40-5.60); RDW 13.9 % (11.5-14.5); WBC 8.67 X 10*3/uL (4.50-10.00)
--- NOTE | 2020-11-24 10:28 | P.DS ---
Providers Date of admission: 11/23/20 03:26 Expected date of discharge: 11/24/20 Attending physician: Srikanth Whitman Consults: 11/23/20 03:25 Consult Physician Routine Consulting Provider: Van Del Valle Consult Reason/Comments: OD,SI Do you want consulting provider notified?: Yes Primary care physician: [facility] Course: HISTORY OF PRESENT ILLNESS This is a 35-year-old male patient of [facility] with past history of heroin use, fentanyl used marijuana use, tobacco use and dependence. Patient states that he has been using "Dope" fentanyl and heroin for the past 10 years. He has been through rehab 45 times and last time it was in 2017 in [place]. He denies any alcohol abuse. He states he has had cellulitis but not from injection sites. Patient apparently has been using IV drugs 4 times a day for the every day for the past 9 months and yesterday he tried to stop and skipped some doses but then felt that his skin was crawling, he was delusional and hallucinating. He states he has depression but no suicidal ideation. Patient has a sitter at the bedside. He states he does not follow with a psychiatrist. Patient came into [facility] emergency center for evaluation. He was found to be afebrile, heart rate 78, blood pressure 110/74, pulse ox 100% on room air. WBC 6, hemoglobin 12.4, platelet count 311. Electrolytes and renal function normal. Blood sugar 111. Liver function tests were normal. CK 53. Patient has been admitted to the MedSur floor and consult in place with psychiatry and social work consult added for drug addiction rehab resources. Patient is status post 2-1/2 L of IV fluids. He has been started on the Ativan CIWA protocol. 11/24: Patient has been seen by psychiatry and sitter was discontinued as patient was not suicidal. No psychiatric medications were recommended at this time and psychiatry has signed off. Patient has been seen by social work and given resources for substance abuse rehab. Patient denies any new complaints. He has started having diarrhea for which she was started on Imodium. Patient has been afebrile, heart rate 88, blood pressure 110/70, pulse ox 100% on room air. CBC is unremarkable. BMP is unremarkable. Blood sugar 114. Patient will be discharged home today in stable condition. ASSESSMENT AND PLAN 1. Multi-substance abuse, IV heroin and IV fentanyl use. 2. Depression, recurrent. 3. Tobacco use and dependence. Start nicotine patch 21 mg daily. DISCHARGE PLAN Substance abuse rehab. Impression and plan of care have been directed as dictated by the signing physician. Catherine Moffett nurse practitioner acting as scribe for signing physician. Patient Condition at Discharge: Good Plan - Discharge Summary Discharge Rx Participant: No New Discharge Prescriptions: New LORazepam [Ativan] 1 mg PO TID 3 Days #9 tab Loperamide [Imodium] 2 mg PO QID PRN cap PRN Reason: Diarrhea Discharge Medication List LORazepam [Ativan] 1 mg PO TID 3 Days #9 tab 11/24/20 [Rx] Loperamide [Imodium] 2 mg PO QID PRN cap 11/24/20 [Rx] Follow up Appointment(s)/Referral([facility]): [facility]Primary [facility]] - 11/28/20 2:00 pm Discharge Disposition: HOME SELF-CARE
[2020-11-24] MEDS: ACETAMINOPHEN TAB 500 MG TAB PO PRN ×2 (10:55→17:50)
[2020-11-24] MEDS: LOPERAMIDE 2 MG CAP PO PRN ×2 (10:55→17:50)
[2020-11-24] MEDS: THIAMINE 100 MG TAB PO SCH (14:15)
[2020-11-24] MEDS: PANTOPRAZOLE 40 MG TABLET PO SCH (14:15)
[2020-11-25] MEDS: ACETAMINOPHEN TAB 500 MG TAB PO PRN (01:25)
[2020-11-25] MEDS: LORazepam 2 MG/ML INJ IV PRN ×3 (01:26→12:06)
[2020-11-25] MEDS: diphenhydrAMINE 25 MG CAP PO PRN ×2 (04:34→21:26)
[2020-11-25] MEDS: THIAMINE 100 MG TAB PO SCH ×2 (09:46→14:43)
[2020-11-25] MEDS: NICOTINE 21MG/24HR PATCH TRANSDERM SCH (09:46)
[2020-11-25] MEDS: PANTOPRAZOLE 40 MG TABLET PO SCH (09:46)
--- NOTE | 2020-11-25 12:51 | P.PN ---
<Alida Carrizales - Last Filed: 11/25/20 12:45> Subjective Progress Note Date: 11/25/20 This is a 35-year-old male patient of [facility] with past history of heroin use, fentanyl used marijuana use, tobacco use and dependence. Patient states that he has been using "Dope" fentanyl and heroin for the past 10 years. He has been through rehab 45 times and last time it was in 2017 in [place]. He denies any alcohol abuse. He states he has had cellulitis but not from injection sites. Patient apparently has been using IV drugs 4 times a day for the every day for the past 9 months and yesterday he tried to stop and skipped some doses but then felt that his skin was crawling, he was delusional and hallucinating. He states he has depression but no suicidal ideation. Patient has a sitter at the bedside. He states he does not follow with a psychiatrist. Patient came into [facility] emergency center for evaluation. He was found to be afebrile, heart rate 78, blood pressure 110/74, pulse ox 100% on room air. WBC 6, hemoglobin 12.4, platelet count 311. Electrolytes and renal function normal. Blood sugar 111. Liver function tests were normal. CK 53. Patient has been admitted to the MedSur floor and consult in place with psychiatry and social work consult added for drug addiction rehab resources. Patient is status post 2-1/2 L of IV fluids. He has been started on the Ativan CIWA protocol. 11/24: Patient has been seen by psychiatry and sitter was discontinued as patient was not suicidal. No psychiatric medications were recommended at this time and psychiatry has signed off. Patient has been seen by social work and given resources for substance abuse rehab. Patient denies any new complaints. He has started having diarrhea for which she was started on Imodium. Patient has been afebrile, heart rate 88, blood pressure 110/70, pulse ox 100% on room air. CBC is unremarkable. BMP is unremarkable. Blood sugar 114. Patient will be discharged home today in stable condition. 11/25: Patient evaluated lying in the bed today. Has complaints of increased anxiety, agitation, and withdrawal symptoms. Patient will be started on clonidine 0.1 mg 3 times a day as well as Zyprexa 5 mg. Patient was planning on discharging home yesterday when he made the statement that he was going to jump off a bridge in attempts to kill himself. This morning patient reports he feels the same and has plans on jumping off a bridge when he leaves. Sitter is at bedside, psychiatry was asked to reevaluate the patient. Discharge will be held for today Objective - Vital Signs Vital signs: Vital Signs Temp 97.6 F 11/25/20 07:59 Pulse 78 11/25/20 07:59 Resp 15 11/25/20 07:59 BP 114/73 11/25/20 07:59 Pulse Ox 100 11/25/20 07:59 Intake & Output 11/24/20 11/25/20 11/25/20 18:59 06:59 18:59 Intake Total 300 580 Balance 300 580 Intake: Oral 300 580 Other: Voiding Method Toilet Toilet Urinal # Voids 2 - Exam Gen: This is a 35-year-old male. He appears to be in no acute distress. HEENT: Head is atraumatic, normocephalic. Pupils equal, round. Sclerae is anicteric. NECK: Supple. No JVD. No lymphadenopathy. No thyromegaly. LUNGS: Clear to auscultation. No wheezes or rhonchi. No intercostal retractio ns. HEART: Regular rate and rhythm. No murmur. ABDOMEN: Soft. Bowel sounds are present. No masses. No tenderness. EXTREMITIES: No pedal edema. No calf tenderness. Multiple injection sites noted along the left arm most concentrated at the antecubital area. NEUROLOGICAL: Patient is awake, alert and oriented x3. Cranial nerves 2 through 12 are grossly intact, irritable. - Labs CBC & Chem 7: 11/24/20 06:26 11/24/20 06:26 Assessment and Plan Plan: 1. Multi-substance abuse, IV heroin and IV fentanyl use. Patient started on CIWA protocol. Psychiatry on consult. Patient has a safety and health manager at the bedside. Clonidine 0.1 mg 3 times a day and Zyprexa 5 mg daily ordered 2. Depression. Patient voiced suicidal ideation in the emergency center. He was cleared by psychiatry and now voices suicidal ideation again. Psychiatry asked to reevaluate the patient before discharge 3. Tobacco use and dependence. Start nicotine patch 21 mg daily. 4. GI prophylaxis. Protonix 40 mg daily. 5. DVT prophylaxis. BEENA hose and ambulation. The above impression and plan of care have been discussed and directed by signing physician. Alida Carrizales nurse practitioner acting as scribe for signing physician. <Karrie Bella - Last Filed: 11/25/20 16:34> Objective - Vital Signs Vital signs: Vital Signs Temp 98.3 F 11/25/20 14:00 Pulse 85 11/25/20 14:00 Resp 16 11/25/20 14:00 BP 108/71 11/25/20 14:00 Pulse Ox 99 11/25/20 14:00 Intake & Output 11/24/20 11/25/20 11/25/20 18:59 06:59 18:59 Intake Total 300 580 Balance 300 580 Intake: Oral 300 580 Other: Voiding Method Toilet Toilet Urinal # Voids 2 - Labs CBC & Chem 7: 11/24/20 06:26 11/24/20 06:26 Assessment and Plan Plan: MEDICALLY CLEARED FOR TRANSFER TO INPATIENT PSYCHIATRY, MONITOR BP WHILE ON CAT APRES, MONITOR FOR INSOMNIA, MOOD LABILITY
[2020-11-25] MEDS: cloNIDine HCL 0.1 MG TAB PO SCH ×2 (14:43→21:26)
[2020-11-25] MEDS: OLANZapine 5 MG TAB PO SCH (14:43)
[2020-11-26] MEDS: ACETAMINOPHEN TAB 500 MG TAB PO PRN (00:32)
[2020-11-26] MEDS: ONDANSETRON 4 MG/2 ML VIAL IVP PRN ×2 (01:10→01:40)
[2020-11-26] MEDS: LORazepam 2 MG/ML INJ IV PRN ×2 (02:36→14:05)
[2020-11-26] MEDS: cloNIDine HCL 0.1 MG TAB PO SCH (08:39)
[2020-11-26] MEDS: OLANZapine 5 MG TAB PO SCH (08:42)
[2020-11-26] MEDS: PANTOPRAZOLE 40 MG TABLET PO SCH (08:42)
[2020-11-26] MEDS: NICOTINE 21MG/24HR PATCH TRANSDERM SCH (08:42)
[2020-11-26] MEDS: THIAMINE 100 MG TAB PO SCH (08:42)
--- NOTE | 2020-11-26 10:30 | P.DS ---
Providers Date of admission: 11/23/20 03:26 Attending physician: Srikanth Whitman Consults: 11/23/20 03:25 Consult Physician Routine Consulting Provider: Van Del Valle Consult Reason/Comments: OD,SI Do you want consulting provider notified?: Yes 11/25/20 08:53 Consult Physician Urgent Consulting Provider: Claudio Zhou Consult Reason/Comments: suicidal ideation - threatened to leave AMA and jump off the bridge. Do you want consulting provider notified?: Already Contacted Primary care physician: [facility] Course: This is a 35-year-old male patient [facility] with past history of heroin use, fentanyl used marijuana use, tobacco use and dependence. Patient states that he has been using "Dope" fentanyl and heroin for the past 10 years. He has been through rehab 45 times and last time it was in 2017 in [place]. He denies any alcohol abuse. He states he has had cellulitis but not from injection sites. Patient apparently has been using IV drugs 4 times a day for the every day for the past 9 months and yesterday he tried to stop and skipped some doses but then felt that his skin was crawling, he was delusional and hallucinating. He states he has depression but no suicidal ideation. Patient has a sitter at the bedside. He states he does not follow with a psychiatrist. Patient came into [facility] emergency center for evaluation. He was found to be afebrile, heart rate 78, blood pressure 110/74, pulse ox 100% on room air. WBC 6, hemoglobin 12.4, platelet count 311. Electrolytes and renal function normal. Blood sugar 111. Liver function tests were normal. CK 53. Patient has been admitted to the MedSur floor and consult in place with psychiatry and social work consult added for drug addiction rehab resources. Patient is status post 2-1/2 L of IV fluids. He has been started on the Ativan CIWA protocol. 11/24: Patient has been seen by psychiatry and sitter was discontinued as patient was not suicidal. No psychiatric medications were recommended at this time and psychiatry has signed off. Patient has been seen by social work and given resources for substance abuse rehab. Patient denies any new complaints. He has started having diarrhea for which she was started on Imodium. Patient has been afebrile, heart rate 88, blood pressure 110/70, pulse ox 100% on room air. CBC is unremarkable. BMP is unremarkable. Blood sugar 114. Patient will be discharged home today in stable condition. 11/25: Patient evaluated lying in the bed today. Has complaints of increased anxiety, agitation, and withdrawal symptoms. Patient will be started on clonidine 0.1 mg 3 times a day as well as Zyprexa 5 mg. Patient was planning on discharging home yesterday when he made the statement that he was going to jump off a bridge in attempts to kill himself. This morning patient reports he feels the same and has plans on jumping off a bridge when he leaves. Sitter is at bedside, psychiatry was asked to reevaluate the patient. Discharge will be held for today 11/26: Patient resting in the bed comfortably. Patient was started on clonidine as well as Zyprexa yesterday. Patient reports improvement in his withdrawal symptoms. Vital signs are stable temperature 97.9, heart rate 78, blood pressure 94/53, 97% on room air. Patient is medically stable and will be morales sitioned to the mental health unit. Discharge diagnoses 1. Multi-substance abuse, IV heroin and IV fentanyl use. 2. Depression. 3. Tobacco use and dependence. The above impression and plan of care have been discussed and directed by signing physician. Alida Carrizales nurse practitioner acting as scribe for signing physician. Patient Condition at Discharge: Good Plan - Discharge Summary Discharge Rx Participant: No New Discharge Prescriptions: New LORazepam [Ativan] 1 mg PO TID 3 Days #9 tab diphenhydrAMINE [Benadryl] 25 mg PO HS PRN cap PRN Reason: Insomnia cloNIDine HCL [Catapres] 0.1 mg PO TID tab OLANZapine [ZyPREXA] 5 mg PO DAILY tab Loperamide [Imodium] 2 mg PO QID PRN cap PRN Reason: Diarrhea Discharge Medication List LORazepam [Ativan] 1 mg PO TID 3 Days #9 tab 11/24/20 [Rx] Loperamide [Imodium] 2 mg PO QID PRN cap 11/24/20 [Rx] OLANZapine [ZyPREXA] 5 mg PO DAILY tab 11/26/20 [Rx] cloNIDine HCL [Catapres] 0.1 mg PO TID tab 11/26/20 [Rx] diphenhydrAMINE [Benadryl] 25 mg PO HS PRN cap 11/26/20 [Rx] Follow up Appointment(s)/Referral(s): [facility] [Primary Care Provider] - 11/28/20 2:00 pm Discharge Disposition: TRANSFER TO PSYCH HOSP/UNIT
[2020-11-26 15:16] VITALS: PULSE 76; RESP 16; TEMP 97.7
[2020-11-26 15:50] VITALS: BP 115/78
== END 2020-11-26 16:34 ==
LOC: EC 23:31 → 4SSUR 11-23 03:26
PROVIDERS: ADMIT Internal Medicine Geriatric Medicine; ATTEND Internal Medicine Geriatric Medicine
DX: F19.239 Other psychoactive substance dependence with withdrawal, unspecified (principal); T50.902A Poisoning by unspecified drugs, medicaments and biological substances, intentional self-harm, initial encounter; F33.9 Major depressive disorder, recurrent, unspecified; F17.210 Nicotine dependence, cigarettes, uncomplicated; F41.9 Anxiety disorder, unspecified; F11.90 Opioid use, unspecified, uncomplicated; F12.90 Cannabis use, unspecified, uncomplicated; Z88.0 Allergy status to penicillin; Z79.899 Other long term (current) drug therapy; Z81.1 Family history of alcohol abuse and dependence
CPT/HCPCS: 96376 ×4; 96361 ×2; 96372; 96375 ×2; 82075; 96374; 99285; 36415; 80053; 80048; 82550; 83735 ×2; 84100 ×2; 85025 ×2; G0378 ×4; S4990 ×4; J2060 ×4; J1200; J3411; J3360; J2405 ×2

== ENCOUNTER 2020-11-26 16:32 | Inpatient (IN) | payer MEDICAID ==
[2020-11-26] MEDS ORDERED: ACETAMINOPHEN TAB 325 MG TAB PO PRN (16:45)
[2020-11-26] MEDS ORDERED: MAGNESIUM HYDROXIDE 2,400 MG/10 ML CUP PO PRN (16:45)
[2020-11-26] MEDS ORDERED: diphenhydrAMINE 25 MG CAP PO PRN (16:47)
[2020-11-26] MEDS ORDERED: LORazepam 2 MG/ML INJ IM PRN (16:49)
[2020-11-26] MEDS ORDERED: HALOPERIDOL LACTATE 5 MG/ML 1 ML VIAL IM PRN (16:50)
[2020-11-26] MEDS: LORazepam 1 MG TAB PO PRN (20:54)
[2020-11-26] MEDS: cloNIDine HCL 0.1 MG TAB PO SCH (20:54)
[2020-11-27] MEDS: LORazepam 1 MG TAB PO PRN ×2 (03:09→12:41)
[2020-11-27 06:53] LABS: Basophils # (A) 0.1 k/uL (0-0.2); Basophils % (A) 1 %; Eosinophils # (A) 0.2 k/uL (0-0.7); Eosinophils % (A) 2 %; HCT 45.2 % (39.0-53.0); Lymphocytes # (A) 2.4 k/uL (1.0-4.8); Lymphocytes % (A) 23 %; MCH 28.2 pg (25.0-35.0); MCHC 33.1 g/dL (31.0-37.0); MCV 85.2 fL (80.0-100.0); Mean Platelet Volume 8.5; Monocytes # (A) 0.6 k/uL (0-1.0); Monocytes % (A) 5 %; Neutrophils # (A) 7.2 k/uL (1.3-7.7); Neutrophils % (A) 68 %; Platelet Count 483 k/uL (150-450); RBC 5.31 m/uL (4.30-5.90); WBC 10.6 k/uL (3.8-10.6)
[2020-11-27 07:12] LABS: ALT 19 U/L (4-49); AST 20 U/L (17-59); African American GFR (CKD) >90 (>60 ml/min/1.73 sqM); Albumin 4.4 g/dL (3.5-5.0); Alkaline Phosphatase 109 U/L (38-126); Anion Gap 9 mmol/L; Blood Urea Nitrogen 11 mg/dL (9-20); Calcium 10.1 mg/dL (8.4-10.2); Carbon Dioxide 31 mmol/L (22-30); Chloride 102 mmol/L (98-107); Glucose 99 mg/dL (74-99); Non-African American GFR(CKD) >90 (>60 ml/min/1.73 sqM); Potassium 4.8 mmol/L (3.5-5.1); Sodium 142 mmol/L (137-145); Total Bilirubin 0.3 mg/dL (0.2-1.3); Total Protein 7.7 g/dL (6.3-8.2)
[2020-11-27] MEDS: NICOTINE 14MG/24HR PATCH TRANSDERM SCH (08:13)
[2020-11-27] MEDS: cloNIDine HCL 0.1 MG TAB PO SCH (08:13)
[2020-11-27] MEDS ORDERED: OLANZapine 5 MG TAB PO SCH (09:00)
[2020-11-27 11:59] LABS: Chol/HDL Ratio 3.35; Cholesterol 87 mg/dL (0-200); LDL Cholesterol,Calculated 21.2 mg/dL (0.0-131.0)
[2020-11-27 14:03] LABS: Hemoglobin A1C 5.6 % (4.0-6.0)
[2020-11-27] MEDS ORDERED: hydrOXYzine pamoate 25 MG CAP PO PRN (14:27)
[2020-11-27] MEDS ORDERED: traZODone HCL 50 MG TAB PO PRN (14:27)
[2020-11-27] MEDS ORDERED: LOPERAMIDE 2 MG CAP PO PRN (14:29)
[2020-11-27] MEDS ORDERED: cloNIDine HCL 0.1 MG TAB PO PRN (14:44)
--- NOTE | 2020-11-27 14:45 | P.HP ---
Psychiatric H&P - . H&P Date: 11/27/20 History & Physical: Allergies Allergy/AdvReac Type Severity Reaction Status Date / Time Penicillins Allergy Unknown Verified 11/26/20 17:27 Vital Signs Temp 97.9 F 11/27/20 08:00 Pulse 97 11/27/20 08:00 Resp 16 11/27/20 08:00 BP 113/81 11/27/20 08:00 Pulse Ox 97 11/27/20 08:00 Intake & Output 11/26/20 11/27/20 11/27/20 18:59 06:59 18:59 Weight 74.9 kg Laboratory Last Values WBC 10.6 k/uL (3.8-10.6) 11/27/20 06:32 RBC 5.31 m/uL (4.30-5.90) 11/27/20 06:32 Hgb 15.0 gm/dL (13.0-17.5) 11/27/20 06:32 Hct 45.2 % (39.0-53.0) 11/27/20 06:32 MCV 85.2 fL (80.0-100.0) 11/27/20 06:32 MCH 28.2 pg (25.0-35.0) 11/27/20 06:32 MCHC 33.1 g/dL (31.0-37.0) 11/27/20 06:32 RDW 14.0 % (11.5-15.5) 11/27/20 06:32 Plt Count 483 k/uL (150-450) H 11/27/20 06:32 MPV 8.5 11/27/20 06:32 Neutrophils % 68 % 11/27/20 06:32 Lymphocytes % 23 % 11/27/20 06:32 Monocytes % 5 % 11/27/20 06:32 Eosinophils % 2 % 11/27/20 06:32 Basophils % 1 % 11/27/20 06:32 Neutrophils # 7.2 k/uL (1.3-7.7) 11/27/20 06:32 Lymphocytes # 2.4 k/uL (1.0-4.8) 11/27/20 06:32 Monocytes # 0.6 k/uL (0-1.0) 11/27/20 06:32 Eosinophils # 0.2 k/uL (0-0.7) 11/27/20 06:32 Basophils # 0.1 k/uL (0-0.2) 11/27/20 06:32 Sodium 142 mmol/L (137-145) 11/27/20 06:32 Potassium 4.8 mmol/L (3.5-5.1) 11/27/20 06:32 Chloride 102 mmol/L (98-107) 11/27/20 06:32 Carbon Dioxide 31 mmol/L (22-30) H 11/27/20 06:32 Anion Gap 9 mmol/L 11/27/20 06:32 BUN 11 mg/dL (9-20) 11/27/20 06:32 Creatinine 1.00 mg/dL (0.66-1.25) 11/27/20 06:32 Est GFR (CKD-EPI)AfAm >90 (>60 ml/min/1.73 sqM) 11/27/20 06:32 Est GFR (CKD-EPI)NonAf >90 (>60 ml/min/1.73 sqM) 11/27/20 06:32 Glucose 99 mg/dL (74-99) 11/27/20 06:[address] Glu mg/dL 114 11/27/20 06:32 Hemoglobin A1c 5.6 % (4.0-6.0) 11/27/20 06:32 Calcium 10.1 mg/dL (8.4-10.2) 11/27/20 06:32 Total Bilirubin 0.3 mg/dL (0.2-1.3) 11/27/20 06:32 AST 20 U/L (17-59) 11/27/20 06:32 ALT 19 U/L (4-49) 11/27/20 06:32 Alkaline Phosphatase 109 U/L (38-126) 11/27/20 06:32 Total Protein 7.7 g/dL (6.3-8.2) 11/27/20 06:32 Albumin 4.4 g/dL (3.5-5.0) 11/27/20 06:32 Triglycerides 199.0 mg/dL (0.0-149.0) H 11/27/20 06:32 Cholesterol 87 mg/dL (0-200) 11/27/20 06:32 LDL Cholesterol, Calc 21.2 mg/dL (0.0-131.0) 11/27/20 06:32 VLDL Cholesterol, Calc 39.80 mg/dL (5.00-40.00) 11/27/20 06:32 HDL Cholesterol 26.0 mg/dL (40.0-60.0) L 11/27/20 06:32 Cholesterol/HDL Ratio 3.35 11/27/20 06:32 TSH 0.784 mIU/L (0.465-4.680) 11/27/20 06:32 11/27/20 14:15 IDENTIFYING DATA: This patient is a single, employed, 35-year-old male, currently lives with his parents in a house has no kids. HISTORY OF PRESENT ILLNESS: according to consult note by Dr. Schaffer "The patient presented to the hospital on initially on 11/23/2020, brought in by EMS after the patient pr esented as delirious and reporting that he overdosed on multiple drugs and experiencing withdrawal. As per ED note, the patient did endorse increased depression and suicidal ideation. Psychiatry has been consulted for evaluation of suicidal ideation. Upon evaluation on the hospital floor, the patient is vehemently denying any significant symptoms of depression or anxiety at this time. He does state that he feels some low motivation and decreased energy but vehemently denies any suicidal or homicidal ideation, intention, and/or plan. The patient reports no prior attempts at suicide. He reports a strong desire to live in order to "find out what I want to do with my life and to do right by my mother." He states that he may have verbalized some suicidal thoughts when he was actively experiencing withdrawal. He reports no prior attempts at suicide and states that any prior overdose was unintentional. He reports that he has been eating and sleeping well. He denies any issues completing his ADLs. The patient states that he is feeling much better now that he was admitted to the hospital floor. He continues to endorse significant withdrawal symptoms including yawning, joint pain, hot and cold sweats, and occasional pruritus. The patient reports no significant history of psychosis unless he was intoxicated or undergoing withdrawals. He denies any current hallucinations. He vehemently denies any history of auditory or visual hallucinations. He reports no history of paranoia or other delusions." Patient apparently over the weekend made suicidal statements and was petition by medical floor nurse which mentions "he wanted to leave the hospital and go jump in the river, wanted to leave a note for his mom and he pulled his IV to try to make himself lose "arterial blood" a nd hoped it would take him "make it quicker". Patient was seen today on the psychiatric unit agreeable to speak to script writer. He was initially attempting to cooperate however patient was fairly impulsive and had a low frustration tolerance with script writer. He claims that he does not want to take any of the medications and wants to be discharged. He was minimizing his drug use and does not think he needs rehab or treatment. He claims that he was feeling depressed however was fairly superficial and claiming he did not mention any suicidal statements and claims the petition was alive. He admitted to using heroin for the past 10 months and using it IV. He states that he uses approximately half gram a day. Continue also smokes cigarettes. He states that he's been in rehab several times and is not interested in going at this time. Substance abuse hx: The patient does have a significant history of substance abuse. The patient reports that he first began using substances when he was in high school. He reports that he began using oxycodone after injuring his hands 8-10 years ago. He reports that he transitioned to IV heroin use when he was around 28 years old. He states that he's been using heavily, up to 4 times a day everyday. The patient also reports that this has led him to armed robbery in order to fund his drug habit. This resulted in him being incarcerated from [id number]. He reports that during those 2 years of incarceration, that was the longest he has been sober from substances. He does report smoking 1 pack per day. He denies any significant alcohol or marijuana use. He denies any other drug use. The patient reports that he has previously tried Suboxone but did not like it. He does express a strong desire to quit. He states that he has been to inpatient rehabilitation 45 times. PAST PSYCHIATRIC HISTORY: The patient reports no significant history of mental health issues. He reports no prior psychiatric medications. He denies any previous psychiatric hospitalizations. He denies any psychiatric outpatient follow-up. He denies any prior history of suicide attempts. PAST MEDICAL HISTORY: Past Medical History: No Reported History ALLERGIES: Penicillin CHEMICAL DEPENDENCY HISTORY: as per HPI. FAMILY PSYCHIATRIC/SUBSTANCE USE HISTORY: Patient reports that his father was an alcoholic. SOCIAL HISTORY: Patient was born and raised in [place] and moved to [place] in 1996. He is single, never , and has no children. He currently works in a factory. He reports that he has his GED. He lives with his parents in a house. MENTAL STATUS EXAM: General Appearance: Patient appears to be stated age is alert, irritable at times and unpredictable. Patient appears to have ok hygiene and grooming wearing hospital gown with good eye contact. He has multiple tattoos. Behavior: Patient is sitting on the chair. Unpredictable and irritable. Superficial Speech: Patient's speech is fluent and nonpressured. Demanding Mood/Affect: Patient reports their mood is "ok.", affect is incongruent Suicidality/Homicidality: Patient denies having any suicidal or homicidal ideation intent or plan. Perceptions: Patient denies any visual hallucinations and denies any auditory hallucinations Though content/process: There is no evidence of any delusional thought content and thought process is linear and goal-directed. Focused on discharge. Minimizing his substance use. Memory and concentration: AOX3, grossly intact for the purposes of this session. Can spell "WORLD" backwards Judgment and insight: poor/impulsive STRENGTHS/WEAKNESSES: strength is that patient is resilient. Weakness is that patient has poor judgment and is impulsive INTELLECT: average IMPRESSIONS: Mood disorder unspecified, rule out secondary to substance abuse Opiate use disorder, currently in withdrawal Nicotine dependence Cluster B personality traits PLAN: -Patient is admitted under involuntarily status to MHU for stabilization of psychiatric symptoms and safety. Patient has not signed adult voluntary form and medication consent and is placed in patient's chart. A second certification was completed and along with petition will be filed for court. -Medications : Will start patient on Zyprexa however will increase to 10 mg daily at bedtime. I added trazodone 50 mg daily at bedtime for insomnia when necessary. Vistaril when necessary for anxiety. -Ativan and Haldol PRN for agitation/aggression -Loperamide when necessary for diarrhea. -Hotel Service Supervisor spoke with patient about his substance use however patient was very superficial and refusing rehab at this time and wants to be discharged. He did state that he is trying to get into [facility] for [facility]one program. -Internal Medicine consult to perform medical evaluation and physical. -NRT - nicotine patch -SW on board for discharge planning. Encourage patient to participate in groups to work on coping skills. Will await deferral and court date. community development worker to look into if patient is enrolled in [facility] for the methadone program which will need to be set up upon discharge. He is not interested in rehab at this time.
[2020-11-27] MEDS: OLANZapine 10 MG TAB PO SCH (20:00)
--- NOTE | 2020-11-28 00:50 | P.CONS ---
History of Present Illness - Reason for Consult Consult date: 11/28/20 - History of Present Illness The patient is a 35-year-old male with a PMH of polysubstance abuse including IV heroin who presented to the emergency room with depression and suicidal ideation. Patient reported that he is tired of his ongoing substance abuse and wishes to get clean. He reported having thoughts of hurting himself but denied any active plan. He also reported having difficulty sleeping since his last use of heroin roughly a week ago. He denied any additional complaints. Reports smoking 1 pack of cigarettes daily for the past 20 years. Denied chest discomfort, shortness of breath, fever, chills, cough. Denied abdominal pain, nausea, vomiting, weakness, numbness, tingling. Review of systems: Pertinent positives and negatives as discussed in HPI, a complete review of systems was performed and all other systems are negative. Physical examination: General: non toxic, no distress, appears at stated age, normal weight Derm: no unusual rashes/lesions no unusual ecchymoses, warm, dry Head: atraumatic, normocephalic, symmetric Eyes: EOMI, no lid lag, anicteric sclera, pupils equal round reactive to light ENT: Nose and ears atraumatic, no thrush, no pharyngeal erythema Neck: No thyromegaly, no cervical lymphadenopathy, trachea midline, supple Mouth: no lip lesion, mucus membranes moist Cardiovascular: S1S2 reg, no murmur, positive posterior tibial pulse bilateral, no edema, capillary refill less than 2 seconds Lungs: CTA bilateral, no rhonchi, no rales , no accessory muscle use Abdominal: soft, nontender to palpation, no guarding, no appreciable organomegaly, normal bowel sounds Ext: no gross muscle atrophy, muscle strength 5 out of 5 in all 4 extremities grossly, no contractures, Neuro: CN II-XI grossly intact, light touch intact all 4 extremities, finger to nose within normal limits, Psych: Alert, oriented, flat affect Assessment/plan IV heroin abuse -Strongly advised on the importance of cessation -Monitor for signs of withdrawal Tobacco abuse -Nicotine patch as needed Depression and suicidal ideation -As per psychiatry Thank you for allowing us to participate in the care of this patient. We will follow peripherally. Do not hesitate to contact us with questions. Someone can be reached from the [facility] hospitalist group at all hours of the day at [phone]. Past Medical History Past Medical History: No Reported History History of Any Multi-Drug Resistant Organisms: None Reported Past Surgical History: No Surgical Hx Reported Past Anesthesia/Blood Transfusion Reactions: No Reported Reaction Past Psychological History: No Psychological Hx Reported Smoking Status: Current every day smoker Past Alcohol Use History: Rare Past Drug Use History: Heroin, Marijuana - Past Family History family Family Medical History: No Reported History Medications and Allergies Home Medications Medication Instructions Recorded Confirmed Type LORazepam [Ativan] 1 mg PO TID 3 Days #9 tab 11/24/20 11/26/20 Rx Loperamide [Imodium] 2 mg PO QID PRN cap 11/24/20 11/26/20 Rx OLANZapine [ZyPREXA] 5 mg PO DAILY tab 11/26/20 11/26/20 Rx cloNIDine HCL [Catapres] 0.1 mg PO TID tab 11/26/20 11/26/20 Rx diphenhydrAMINE [Benadryl] 25 mg PO HS PRN cap 11/26/20 11/26/20 Rx Allergies Allergy/AdvReac Type Severity Reaction Status Date / Time Penicillins Allergy Unknown Verified 11/26/20 17:27 Physical Exam Vitals: Vital Signs Temp Pulse Resp BP Pulse Ox 11/27/20 20:00 110/65 11/27/20 18:46 98.0 F 70 14 95/58 11/27/20 08:00 97.9 F 97 16 113/81 97 11/27/20 03:10 97.8 F 84 18 117/72 Results CBC & Chem 7: 11/27/20 06:32 11/27/20 06:32 Labs: Abnormal Lab Results - Last 24 Hours (Table) 11/27/20 11/27/20 Range/Units 06:32 06:32 Plt Count 483 H (150-450) k/uL Carbon Dioxide 31 H (22-30) mmol/L Triglycerides 199.0 H (0.0-149.0) mg/dL HDL Cholesterol 26.0 L (40.0-60.0) mg/dL
[2020-11-28] MEDS: LORazepam 1 MG TAB PO PRN ×3 (02:32→18:24)
[2020-11-28] MEDS: MAG HYDROX/AL HYDROX/SIMETH 30 ML CUP PO PRN ×2 (03:22→18:25)
[2020-11-28] MEDS: NICOTINE 14MG/24HR PATCH TRANSDERM SCH (07:56)
--- NOTE | 2020-11-28 10:28 | P.PN ---
Progress Note - Text Progress Note Date: 11/28/20 Interval History: Patient was seen today in his room and was directable and agreeable to speak w ith automotive service writer in his room. Patient appeared to have mild improvement in his impulsivity and irritability today. He apologized to automotive service writer about yesterday when he slammed the door and became agitated on his way out of the office. He claims that "I felt bad about that I just don't want to be here". He continues to be focused on discharge. He continues to have fairly superficial insight into his condition. He claims that he is doing better in terms of his mood today and anxiety. Claims that last night he had "really high anxiety" and claimed that he could not sleep. States that he also had racing thoughts at nighttime. He claims that he needed several different medications to go to sleep. He continues to refuse rehab. He states that he went to 2 groups yesterday. At this time patient denies any suicidal or homical ideations, intent or plan. Patient denies any auditory, visual hallucinations and denies any paranoia or delusions. Patient denies any side effects from the medications and has been compliant with meds. Mental Status Exam: General Appearance: Patient appears to be stated age is alert, less irritable today. unpredictable. Patient appears to have ok hygiene and grooming wearing hospital gown with good eye contact. He has multiple tattoos. Behavior: Patient is laying in bed. Unpredictable. Superficial Speech: Patient's speech is fluent and nonpressured. Mood/Affect: Patient reports their mood is "better", affect is congruent Suicidality/Homicidality: Patient denies having any suicidal or homicidal ideation intent or plan. Perceptions: Patient denies any visual hallucinations and denies any auditory hallucinations Though content/process: There is no evidence of any delusional thought content and thought process is linear and goal-directed. Focused on discharge. Minimizing his substance use. Memory and concentration: AOX3, grossly intact for the purposes of this session. Judgment and insight: poor/impulsive, improving mildly Assessment Mood disorder unspecified, rule out secondary to substance abuse Opiate use disorder, currently in withdrawal Nicotine dependence Cluster B personality traits Plan: -Patient continues to meet criteria for inpatient psychiatric admission for symptom stabilization and safety. Patient has [not] signed [adult voluntary form and] [medication consent] and was placed in patient's chart. -Medications: increase zyprexa 15mg qhs for insomnia/anxiety/mood stabilization. continue with trazodone 50mg qhs prn insomnia. vistaril prn for anxiety. -When necessary Ativan and Haldol for agitation/aggression. -Loperamide when necessary for diarrhea. -NRT - [nicotine patch] -SW on board for discharge planning. Encouraged the patient to participate in milieu. Patient has full court hearing date set for 12/06/20. cut out worker to look into if patient is enrolled in [facility] for the meth[facility]one program which will need to be set up upon discharge. He is not interested in rehab at this time. liekly discharge in 1-2 days if patient defers.
[2020-11-28] MEDS: OLANZapine 10 MG TAB PO SCH (20:57)
[2020-11-28] MEDS ORDERED: MELATONIN 5 MG TABLET PO SCH (21:00)
[2020-11-29 05:57] LABS: Glucose,Whole Blood 134 mg/dL (75-99)
[2020-11-29] MEDS ORDERED: IBUPROFEN 400 MG TAB PO PRN (06:20)
--- NOTE | 2020-11-29 06:20 | P.PN ---
Progress Note - Text Progress Note Date: 11/29/20 The patient was seen and examined at the bedside due to complaints of chest pain. The patient reports that he suddenly developed a left-sided sharp and pleuritic chest discomfort along with left back pain. He denied any prior history of similar pain. He notes that the pain is 8 out of 10 at evaluation, worsened with breathing, with associated shortness of breath. Denied associated nausea, vomiting, diaphoresis, dizziness. Denied cough, fever, chills. Denied lower extremity swelling or pain. Review of systems: Pertinent positives and negatives as discussed in HPI, a complete review of systems was performed and all other systems are negative. Physical examination: General: Non-toxic, Mild distress due to pain, appears stated age, normal weight HEENT: NC/AT, anicteric sclerae, moist conjunctiva, no lid-lag, PERRLA Cardiovascular: S1/S2 wnl, no murmurs, rubs, or gallops, left chest wall exquisite tenderness on palpation, left upper back tenderness Lungs: Clear to auscultation, normal respiratory effort, no accessory muscle use Abdominal: Soft, non-tender, non-distended, no guarding, rebound, or rigidity Skin: Warm, dry Extremities: No edema or contractures Psychiatric: Alert and oriented to person, place and time, appropriate affect Neuro: CN II-XII grossly intact, Strength 5/5 in all 4 extremities, Speech intact, Sensation to light touch grossly intact throughout Assessment/plan Chest wall pain with tenderness -Likely musculoskeletal in nature -EKG reviewed showing normal sinus rhythm -Troponin ordered -Motrin when necessary with topical analgesics for now
[2020-11-29 06:33] VITALS: BP 116/68; PULSE 84; RESP 18; TEMP 97.7
[2020-11-29] MEDS: LORazepam 1 MG TAB PO PRN (07:02)
[2020-11-29] MEDS: NICOTINE 14MG/24HR PATCH TRANSDERM SCH (08:23)
--- NOTE | 2020-11-29 08:50 | P.DS ---
Providers Date of admission: 11/26/20 16:39 Expected date of discharge: 11/29/20 Attending physician: Jason Dickerson MD Consults: 11/26/20 16:45 Consult Physician Routine Consulting Provider: Sierra Physician Consult Reason/Comments: medical management Do you want consulting provider notified?: Yes Primary care physician: [facility] - Discharge Diagnosis(es) (1) Unspecified mood [affective] disorder Current Visit: Yes Status: Acute Priority: High (2) Opioid use disorder Current Visit: Yes Status: Acute Priority: High (3) Nicotine dependence Current Visit: Yes Status: Acute Priority: Low Hospital Course: Admission HPI: Admission note was completed by keno writer "This patient is a single, employed, 35-year-old male, currently lives with his parents in a house has no kids. According to consult note by Dr. Schaffer "The patient presented to the hospital on initially on 11/23/2020, brought in by EMS after the patient presented as delirious and reporting that he overdosed on multiple drugs and experiencing withdrawal. As per ED note, the patient did endorse increased depression and suicidal ideation. Psychiatry has been consulted for evaluation of suicidal ideation. Upon evaluation on the hospital floor, the patient is vehemently denying any significant symptoms of depression or anxiety at this time. He does state that he feels some low motivation and decreased energy but vehemently denies any suicidal or homicidal ideation, intention, and/or plan. The patient reports no prior attempts at suicide. He reports a strong desire to live in order to "find out what I want to do with my life and to do right by my mother." He states that he may have verbalized some suicidal thoughts when he was actively experiencing withdrawal. He reports no prior attempts at suicide and states that any prior overdose was unintentional. He reports that he has been eating and sleeping well. He denies any issues completing his ADLs. The patient states that he is feeling much better now that he was admitted to the hospital floor. He continues to endorse significant withdrawal symptoms including yawning, joint pain, hot and cold sweats, and occasional pruritus. The patient reports no significant history of psychosis unless he was intoxicated or undergoing withdrawals. He denies any current hallucinations. He vehemently denies any history of auditory or visual hallucinations. He reports no history of paranoia or other delusions." Patient apparently over the weekend made suicidal statements and was petition by medical floor nurse which mentions "he wanted to leave the hospital and go jump in the river, wanted to leave a note for his mom and he pulled his IV to try to make himself lose "arterial blood" and hoped it would take him "make it quicker". Patient was seen today on the psychiatric unit agreeable to speak to keno writer. He was initially attempting to cooperate however patient was fairly impulsive and had a low frustration tolerance with keno writer. He claims that he does not want to take any of the medications and wants to be discharged. He was minimizing his drug use and does not think he needs rehab or treatment. He claims that he was feeling depressed however was fairly superficial and claiming he did not mention any suicidal statements and claims the petition was alive. He admitted to using heroin for the past 10 months and using it IV. He states that he uses approximately half gram a day. Continue also smokes cigarettes. He states that he's been in rehab several times and is not interested in going at this time." Hospital course: Upon admission to the unit patient was initially irritable, depressed and going through withdrawals. Patient was however admitted involuntarily under petition and certificate which was filed to the courts. Patient ended up deferring court and agreeing to treatment with his home school liaison officer. Patient got along well with other patients on the unit and followed unit protocol. Patient was compliant with the medications and denied any side effects throughout hospital course. Patient was started on Zyprexa and titrated up to dose of 10 mg daily at bedtime for insomnia/mood stabilization. Patient was also started on trazodone 50 mg daily at bedtime when necessary for insomnia and Vistaril when necessary for anxiety. He was also started on melatonin for sleep. Patient was treated for his opiate withdrawals with loperamide and clonidine. Patient spoke of his stressors and engaged in therapy both group and individual. Patient was also seen by medical team for history and physical exam. Patient apparently did have an incident of chest pain and back pain on the night prior to discharge and sound physician was contacted and did an EKG which was negative and troponins which were negative and described it as most liekly musculoskeletal in nature recommending motrin and topical analgesics. Throughout the course of the hospitalization patient gradually improved with regards to mood, anxiety, sleep and returned back to his baseline level of functioning. On the day of discharge patient denied any suicidal or homicidal ideations intent or plan denied any auditory or visual hallucinations. Patient endorsed wanting to live for his sobriety and family. T he patient denied any access to guns or weapons. Patient denied any paranoia and did not endorse any delusions. Patient does have a significant history of substance abuse and was counseled on abstaining from all substances including alcohol and marijuana. Patient was offered however declined inpatient substance- abuse rehab. Patient did elect to follow up with [facility] for substance use treatment as an outpatient and will be given information/referral for methadone program through [place]. Patient was also counseled on the medications and need for regular compliance and was encouraged to follow-up with their outpatient appointment for mental health and also for primary care. Prior to discharge a family meeting will be arranged by social work therapist to answer any questions and ensure safety upon discharge. Mental status exam: General Appearance: Patient appears to be thin, tall, stated age is alert, pleasant, and cooperative. Patient is in no acute distress and has improved hygiene and grooming Behavior: Patient is calmly seated without any agitated behavior. Speech: Patient's speech is fluent and nonpressured. Mood/Affect: Patient reports their mood is "good", affect is congruent Suicidality/Homicidality: Patient denies having any suicidal or homicidal ideation intent or plan. Perceptions: Patient denies any auditory or visual hallucinations. Though content/process: There is no evidence of any delusional thought content and thought process is linear and goal-directed. more future oriented Memory and concentration: AOX3, grossly intact for the purposes of this session. Can spell "WORLD" backwards correctly. Judgment and insight: chronically poor, however has improved with guarded prognosis Impression: Mood disorder unspecified, rule out secondary to substance abuse Opioid use disorder Nicotine dependence Plan: -Continue with discharge today as patient has improved and stabilized psychiatrically and is not currently an imminent threat to himself and/or others. Patient will remain at chronically elevated risk for harm to self and/or others due to his impulsivity and substance abuse. -Continue medications: Zyprexa 10 mg daily at bedtime for insomnia/anxiety/mood stabilization, trazodone 50 mg daily at bedtime when necessary for insomnia, Vistaril 25 mg twice a day when necessary for anxiety. Melatonin 5 mg daily at bedtime for sleep. -Patient was counseled on the need for medication compliance and appropriate follow-up at mental health and also primary care for medical issues. Patient verbalized understanding and agreed. -Social work to arrange for and conduct family meeting to ensure safety upon discharge and answer any questions/concerns. Social work also to arrange for patients follow up appointments with [facility] for psychiatric care along with follow up with primary care provider. -Patient counseled on abstaining from recreational drugs and marijuana and alcohol. Was informed/educated on the adverse effects on their physical and mental health. Patient verbally agreed and understood. Patient was offered substance abuse treatment however declined at this time. Patient will be however given referral to [place] for the methadone program -Patient was instructed to return to the hospital or seek immediate medical care if their psychiatric or medical symptoms do worsen or reoccur. Allergies Allergy/AdvReac Type Severity Reaction Status Date / Time Penicillins Allergy Unknown Verified 11/26/20 17:27 Laboratory Results WBC 10.6 k/uL (3.8-10.6) 11/27/20 06:32 RBC 5.31 m/uL (4.30-5.90) 11/27/20 06:32 Hgb 15.0 gm/dL (13.0-17.5) 11/27/20 06:32 Hct 45.2 % (39.0-53.0) 11/27/20 06:32 MCV 85.2 fL (80.0-100.0) 11/27/20 06:32 MCH 28.2 pg (25.0-35.0) 11/27/20 06:32 MCHC 33.1 g/dL (31.0-37.0) 11/27/20 06:32 RDW 14.0 % (11.5-15.5) 11/27/20 06:32 Plt Count 483 k/uL (150-450) H 11/27/20 06:32 MPV 8.5 11/27/20 06:32 Neutrophils % 68 % 11/27/20 06:32 Lymphocytes % 23 % 11/27/20 06:32 Monocytes % 5 % 11/27/20 06:32 Eosinophils % 2 % 11/27/20 06:32 Basophils % 1 % 11/27/20 06:32 Neutrophils # 7.2 k/uL (1.3-7.7) 11/27/20 06:32 Lymphocytes # 2.4 k/uL (1.0-4.8) 11/27/20 06:32 Monocytes # 0.6 k/uL (0-1.0) 11/27/20 06:32 Eosinophils # 0.2 k/uL (0-0.7) 11/27/20 06:32 Basophils # 0.1 k/uL (0-0.2) 11/27/20 06:32 Sodium 142 mmol/L (137-145) 11/27/20 06:32 Potassium 4.8 mmol/L (3.5-5.1) 11/27/20 06:32 Chloride 102 mmol/L (98-107) 11/27/20 06:32 Carbon Dioxide 31 mmol/L (22-30) H 11/27/20 06:32 Anion Gap 9 mmol/L 11/27/20 06:32 BUN 11 mg/dL (9-20) 11/27/20 06:32 Creatinine 1.00 mg/dL (0.66-1.25) 11/27/20 06:32 Est GFR (CKD-EPI)AfAm >90 (>60 ml/min/1.73 sqM) 11/27/20 06:32 Est GFR (CKD-EPI)NonAf >90 (>60 ml/min/1.73 sqM) 11/27/20 06:32 Glucose 99 mg/dL (74-99) 11/27/20 06:32 POC Glucose (mg/dL) 134 mg/dL (75-99) H 11/29/20 05:02 POC Glu [employer] LARA Bing Murray 11/29/20 05:[address] Glu mg/dL 114 11/27/20 06:32 Hemoglobin A1c 5.6 % (4.0-6.0) 11/27/20 06:32 Calcium 10.1 mg/dL (8.4-10.2) 11/27/20 06:32 Total Bilirubin 0.3 mg/dL (0.2-1.3) 11/27/20 06:32 AST 20 U/L (17-59) 11/27/20 06:32 ALT 19 U/L (4-49) 11/27/20 06:32 Alkaline Phosphatase 109 U/L (38-126) 11/27/20 06:32 Total Protein 7.7 g/dL (6.3-8.2) 11/27/20 06:32 Albumin 4.4 g/dL (3.5-5.0) 11/27/20 06:32 Triglycerides 199.0 mg/dL (0.0-149.0) H 11/27/20 06:32 Cholesterol 87 mg/dL (0-200) 11/27/20 06:32 LDL Cholesterol, Calc 21.2 mg/dL (0.0-131.0) 11/27/20 06:32 VLDL Cholesterol, Calc 39.80 mg/dL (5.00-40.00) 11/27/20 06:32 HDL Cholesterol 26.0 mg/dL (40.0-60.0) L 11/27/20 06:32 Cholesterol/HDL Ratio 3.35 11/27/20 06:32 TSH 0.784 mIU/L (0.465-4.680) 11/27/20 06:32 Vital Signs Temp 97.7 F 11/29/20 04:30 Pulse 84 11/29/20 04:30 Resp 18 11/29/20 04:30 BP 116/68 11/29/20 04:30 Pulse Ox 97 11/27/20 08:00 Patient Condition at Discharge: Stable Plan - Discharge Summary Discharge Rx Participant: No New Discharge Prescriptions: New traZODone HCL [Desyrel] 50 mg PO HS PRN 14 Days tab PRN Reason: Insomnia Loperamide [Imodium] 2 mg PO QID PRN cap PRN Reason: Diarrhea Ibuprofen [Motrin] 400 mg PO Q6HR PRN tab PRN Reason: Pain Nicotine 14Mg/24Hr Patch [Habitrol] 1 patch TRANSDERM DAILY 14 Days patch Melatonin 5 mg PO HS 30 Days tablet hydrOXYzine pamoate [Vistaril] 25 mg PO BID PRN 14 Days cap PRN Reason: Anxiety OLANZapine [ZyPREXA] 10 mg PO HS 30 Days tab Discontinued LORazepam [Ativan] 1 mg PO TID 3 Days #9 tab diphenhydrAMINE [Benadryl] 25 mg PO HS PRN cap PRN Reason: Insomnia cloNIDine HCL [Catapres] 0.1 mg PO TID tab OLANZapine [ZyPREXA] 5 mg PO DAILY tab Loperamide [Imodium] 2 mg PO QID PRN cap PRN Reason: Diarrhea Discharge Medication List Ibuprofen [Motrin] 400 mg PO Q6HR PRN tab 11/29/20 [Rx] Loperamide [Imodium] 2 mg PO QID PRN cap 11/29/20 [Rx] Melatonin 5 mg PO HS 30 Days tablet 11/29/20 [Rx] Nicotine 14Mg/24Hr Patch [Habitrol] 1 patch TRANSDERM DAILY 14 Days patch 0 11/29/20 [Rx] OLANZapine [ZyPREXA] 10 mg PO HS 30 Days tab 11/29/20 [Rx] hydrOXYzine pamoate [Vistaril] 25 mg PO BID PRN 14 Days cap 11/29/20 [Rx] traZODone HCL [Desyrel] 50 mg PO HS PRN 14 Days tab 11/29/20 [Rx] Activity/Diet/Wound Care/Special Instructions: Activity and diet as tolerated. Avoid the use of street drugs and alcohol. Take all medications as prescribed. When you are in need of refills on your medications please contact your medical provider and/or outpatient psychiatrist to have this done. Please go to scheduled outpatient appointment for aftercare treatment. If symptoms return or become worse, call the crisis line at and/or go to the nearest emergency room for evaluation. Discharge Disposition: HOME SELF-CARE
--- NOTE | 2020-11-29 14:28 | XR ---
EXAM: XR Chest, 1 View CLINICAL HISTORY: Shortness of breath TECHNIQUE: Frontal view of the chest. COMPARISON: No relevant prior studies available. FINDINGS: Lungs: Normal lung volumes. No airspace consolidation. No pulmonary edema. Pleural space: Unremarkable. No pneumothorax. Heart: Unremarkable. No cardiomegaly. Mediastinum: Unremarkable. No mediastinal widening or shift. Bones/joints: Unremarkable. IMPRESSION: No evidence of acute cardiopulmonary abnormality.
== END 2020-11-29 11:35 | disposition home or self-care (01) | DRG 885 ==
LOC: 3MHU 16:39
PROVIDERS: ADMIT Psychiatry & Neurology Psychiatry; ATTEND Psychiatry & Neurology Psychiatry
DX: F39 Unspecified mood [affective] disorder (principal); F11.13 Opioid abuse with withdrawal; F60.89 Other specific personality disorders; R07.89 Other chest pain; G47.00 Insomnia, unspecified; L29.9 Pruritus, unspecified; M54.9 Dorsalgia, unspecified; R45.87 Impulsiveness; F41.9 Anxiety disorder, unspecified; F17.210 Nicotine dependence, cigarettes, uncomplicated; Z71.6 Tobacco abuse counseling; Z79.899 Other long term (current) drug therapy; Z88.0 Allergy status to penicillin; Z81.1 Family history of alcohol abuse and dependence
CPT/HCPCS: 71045; 80053; 80061; 83036; 84443; 84484; 85025; 93005

== ENCOUNTER 2020-11-29 18:31 | Emergency (ER) | payer OTHER ==
--- NOTE | 2020-11-29 19:00 | ED ---
General Adult HPI - General Chief complaint: Overdose Stated complaint: overdose Time Seen by Provider: 11/29/20 18:35 Source: patient, RN notes reviewed, old records reviewed Mode of arrival: EMS Limitations: altered mental status - History of Present Illness Initial comments: This is a 35-year-old male presents emergency Department after being found u nresponsive by family. According to EMS he was given Narcan and woke up immediately. Patient admits to doing heroin. Patient denies any suicide attempt. Patient denies any other drug use. Patient denies any difficulty breathing or chest pain. Patient refuses to answer any other questions because he is angry that his roommate had to call EMS. Patient states he was just recently admitted the hospital for psychiatric issues. Patient is somewhat hostile and aggressive. - Related Data Previous Rx's Medication Instructions Recorded Ibuprofen [Motrin] 400 mg PO Q6HR PRN tab 11/29/20 Loperamide [Imodium] 2 mg PO QID PRN cap 11/29/20 Melatonin 5 mg PO HS 30 Days tablet 11/29/20 Nicotine 14Mg/24Hr Patch [Habitrol] 1 patch TRANSDERM DAILY 14 Days 11/29/20 patch OLANZapine [ZyPREXA] 10 mg PO HS 30 Days tab 11/29/20 hydrOXYzine pamoate [Vistaril] 25 mg PO BID PRN 14 Days cap 11/29/20 traZODone HCL [Desyrel] 50 mg PO HS PRN 14 Days tab 11/29/20 Allergies Allergy/AdvReac Type Severity Reaction Status Date / Time Penicillins Allergy Unknown Verified 11/29/20 19:07 Review of Systems ROS Statement: Those systems with pertinent positive or pertinent negative responses have been documented in the HPI. ROS Other: All systems not noted in ROS Statement are negative. Past Medical History Past Medical History: No Reported History History of Any Multi-Drug Resistant Organisms: None Reported Past Surgical History: No Surgical Hx Reported Past Anesthesia/Blood Transfusion Reactions: No Reported Reaction Past Psychological History: No Psychological Hx Reported Smoking Status: Current every day smoker Past Alcohol Use History: Rare Past Drug Use History: Heroin, Marijuana - Past Family History family Family Medical History: No Reported History General Exam - General Exam Comments Initial Comments: GENERAL: Patient is well-developed and well-nourished. Patient is nontoxic and well- hydrated and is in no acute distress. ENT: Neck is soft and supple. No significant lymphadenopathy is noted. Oropharynx is clear. Moist mucous membranes. Neck has full range of motion without eliciting any pain. EYES: The sclera were anicteric and conjunctiva were pink and moist. Extraocular movements were intact and pupils were equal round and reactive to light. Eyelids were unremarkable. PULMONARY: Unlabored respirations. Good breath sounds bilaterally. No audible rales rhonchi or wheezing was noted. CARDIOVASCULAR: There is a regular rate and rhythm without any murmurs gallops or rubs. ABDOMEN: Soft and nontender with normal bowel sounds. SKIN: Skin is clear with no lesions or rashes and otherwise unremarkable. NEUROLOGIC: Patient is alert and oriented x3. Cranial nerves II through XII are grossly intact. Motor and sensory are also intact. Normal speech, volume and content. Symmetrical smile. MUSCULOSKELETAL: Normal extremities with adequate strength and full range of motion. LYMPHATICS: No significant lymphadenopathy is noted PSYCHIATRIC: Patient is fairly uncooperative and angry because he is upset that he was brought in at all. Patient is also upset that he got Narcan. Patient denies any suicidal ideations Limitations: altered mental status Course Vital Signs 11/29/20 11/29/20 18:32 18:43 Temperature 98.0 F Pulse Rate 99 Pulse Rate [ 90 Bilateral Radial] Respiratory 18 Rate Blood Pressure 123/87 O2 Sat by Pulse 100 Oximetry Medical Decision Making - Medical Decision Making EKG shows normal sinus rhythm at 85 bpm NH interval 248 QRSs 84 QT interval 352 QTC is 418. Patient's EKG shows no ST segment elevation or depression. I will back into the room 3 different occasions patient was alert and oriented 3 on 3 times. Patient however was very tired and chronically went to sleep but he states he has been sleeping well lately. Patient states he will be staying with his mom michael and she denies any methadone use ever and he states the last time he used methamphetamine was 2 weeks ago. They he only used heroin. Disposition Clinical Impression: Opiate overdose Disposition: HOME SELF-CARE Condition: Good Instructions (If sedation given, give patient instructions): Adult Overdose (ED) Is patient prescribed a controlled substance at d/c from ED?: No [facility] - 1-2 days Time of Disposition: 20:54
[2020-11-29 21:28] VITALS: BP 118/72; PULSE 92; RESP 16; TEMP 97.8
== END 2020-11-29 21:40 | disposition home or self-care (01) ==
LOC: EC 18:31
DX: T40.1X1A Poisoning by heroin, accidental (unintentional), initial encounter (principal); F12.90 Cannabis use, unspecified, uncomplicated; F17.200 Nicotine dependence, unspecified, uncomplicated
CPT/HCPCS: 93005; 99284

== ENCOUNTER 2022-02-21 17:47 | Emergency (ER) | payer OTHER ==
[2022-02-21 18:11] VITALS: TEMP 98
[2022-02-21] MEDS ORDERED: methylPREDNISolone SOD SUCCI 125 MG/2 ML VIAL IV STA (18:29)
[2022-02-21] MEDS ORDERED: SODIUM CHLORIDE 0.9% 1,000 ML IV STA (18:29)
[2022-02-21] MEDS ORDERED: FAMOTIDINE 20 MG/2 ML VIAL IV STA (18:29)
[2022-02-21 19:33] LABS: HCT 42.4 % (39.0-53.0); HGB 14.7 gm/dL (13.0-17.5); MCH 29.9 pg (25.0-35.0); MCHC 34.7 g/dL (31.0-37.0); MCV 86.2 fL (80.0-100.0); Mean Platelet Volume 9.7; RBC 4.91 m/uL (4.30-5.90); RDW 13.9 % (11.5-15.5)
--- NOTE | 2022-02-21 19:34 | ED ---
Allergic Reaction HPI - General Chief complaint: Allergic Reaction Stated complaint: rash Source: patient Mode of arrival: ambulatory Limitations: no limitations - History of Present Illness Initial Comments: Patient is a 36 year old male presenting to the emergency room with sudden onset of diffuse hives that began on his right hand and quickly disseminated throughout his entire body including his thighs trunk upper and lower extremities. He denies having a previous ALLERGIC reactions. He reports that he was around a cat, smoking a cigarette and had taken Tylenol and Motrin earlier in the day for to pain. He is not on any other new medications. He denies any new soaps or detergents. He did take 150 mg of Benadryl while at [employer] prior to coming to the emergency room. He is complaining of some mild itching that is slowly improving after taking Benadryl. He denies any shortness of breath, chest pain, abdominal pain, nausea, vomiting, diarrhea, fevers or ch ills. He has no significant past medical history and is not on any medications on a regular basis. - Related Data Previous Rx's Medication Instructions Recorded Ibuprofen [Motrin] 400 mg PO Q6HR PRN tab 11/29/20 Loperamide [Imodium] 2 mg PO QID PRN cap 11/29/20 Melatonin 5 mg PO HS 30 Days tablet 11/29/20 Nicotine 14Mg/24Hr Patch [Habitrol] 1 patch TRANSDERM DAILY 14 Days 11/29/20 patch OLANZapine [ZyPREXA] 10 mg PO HS 30 Days tab 11/29/20 hydrOXYzine pamoate [Vistaril] 25 mg PO BID PRN 14 Days cap 11/29/20 traZODone HCL [Desyrel] 50 mg PO HS PRN 14 Days tab 11/29/20 EPINEPHrine (Auto Inject) [Epipen] 0.3 mg IM ONCE PRN 1 Days #1 each 02/21/22 methylPREDNISolone Dose Pack 4 mg PO DIRECTED #21 tab 02/21/22 [Medrol Dose Pack] Allergies Allergy/AdvReac Type Severity Reaction Status Date / Time Penicillins Allergy Unknown Verified 02/21/22 18:11 Review of Systems ROS Statement: Those systems with pertinent positive or pertinent negative responses have been documented in the HPI. ROS Other: All systems not noted in ROS Statement are negative. Past Medical History Past Medical History: No Reported History History of Any Multi-Drug Resistant Organisms: None Reported Past Surgical History: No Surgical Hx Reported Past Anesthesia/Blood Transfusion Reactions: No Reported Reaction Past Psychological History: No Psychological Hx Reported Smoking Status: Current every day smoker Past Alcohol Use History: Rare Past Drug Use History: Heroin, Marijuana - Past Family History family Family Medical History: No Reported History General Exam Limitations: no limitations General appearance: alert, in no apparent distress Head exam: Present: atraumatic, normocephalic, normal inspection Eye exam: Present: normal appearance, PERRL, EOMI. Absent: scleral icterus, conjunctival injection, periorbital swelling ENT exam: Present: mucous membranes moist, other (Oropharynx erythema without edema) Neck exam: Present: normal inspection. Absent: tenderness, meningismus, lymphadenopathy Respiratory exam: Present: normal lung sounds bilaterally. Absent: respiratory distress, wheezes, rales, rhonchi, stridor Cardiovascular Exam: Present: regular rate, normal rhythm, normal heart sounds. Absent: systolic murmur, diastolic murmur, rubs, gallop, clicks GI/Abdominal exam: Present: soft, normal bowel sounds. Absent: distended, tenderness, guarding, rebound, rigid Extremities exam: Present: full ROM (Thank you). Absent: pedal edema, joint swelling Back exam: Present: normal inspection Neurological exam: Present: alert, oriented X3, CN II-XII intact Psychiatric exam: Present: normal affect, normal mood Skin exam: Present: rash, urticaria, other (Hives noted to abdomen, back, upper and lower extremities no lesions noted to her face or neck.) Course Vital Signs 02/21/22 18:06 Temperature 98 F Pulse Rate 110 H Respiratory 20 Rate Blood Pressure 125/47 O2 Sat by Pulse 99 Oximetry Medical Decision Making - Medical Decision Making 36-year-old male presenting to the emergency room with sudden onset of similar hives with no known source. No previous ALLERGIC response or known allergens. Prior to arrival to the emergency room he took 150 mg of oral Benadryl [id number] and reports slight improvement in itching. Due to unknown source will check CBC and CMP no indication for other diagnostic imaging. Airway patent. No indication for nebulized treatment. Will give Solu- Medrol along with Pepcid. No need for further Benadryl. Will also give IV fluid bolus. CBC unremarkable, BMP shows mild dehydration. Symptoms much improved after co urse of treatment. Increase drowsiness after Benadryl without significant sedation noted. Will discharge patient home on a Medrol Dosepak given unknown source of allergen along with an EpiPen. Instructions regarding recurrence of ALLERGIC reaction and use of EpiPen reviewed at length. Case discussed with Dr. Neely - Lab Data Result diagrams: 02/21/22 18:31 02/21/22 18:31 Lab Results 02/21/22 02/21/22 Range/Units 18:31 18:31 WBC 27.0 H (3.8-10.6) k/uL RBC 4.91 (4.30-5.90) m/uL Hgb 14.7 (13.0-17.5) gm/dL Hct 42.4 (39.0-53.0) % MCV 86.2 (80.0-100.0) fL MCH 29.9 (25.0-35.0) pg MCHC 34.7 (31.0-37.0) g/dL RDW 13.9 (11.5-15.5) % Plt Count 293 (150-450) k/uL MPV 9.7 Neutrophils % (Manual) 73 % Band Neuts % (Manual) 19 % Lymphocytes % (Manual) 2 % Monocytes % (Manual) 5 % Metamyelocytes % 2 % Myelocytes % 1 % Neutrophils # (Manual) 24.80 H (1.3-7.7) k/uL Lymphocytes # (Manual) 0.54 L (1.0-4.8) k/uL Monocytes # (Manual) 1.35 H (0-1.0) k/uL Metamyelocytes # (Man) 0.54 H (0) k/uL Myelocytes # (Manual) 0.27 H (0) k/uL Nucleated RBCs 0 (0-0) /100 WBC Manual Slide Review Performed Toxic Granulation Present Toxic Vacuolation Present RBC Morphology Normal Sodium 136 L (137-145) mmol/L Potassium 4.6 (3.5-5.1) mmol/L Chloride 98 (98-107) mmol/L Carbon Dioxide 21 L (22-30) mmol/L Anion Gap 17 mmol/L BUN 23 H (9-20) mg/dL Creatinine 1.39 H (0.66-1.25) mg/dL Est GFR (CKD-EPI)AfAm 75 (>60 ml/min/1.73 sqM) Est GFR (CKD-EPI)NonAf 65 (>60 ml/min/1.73 sqM) Glucose 136 H (74-99) mg/dL Calcium 9.0 (8.4-10.2) mg/dL Total Bilirubin 0.7 (0.2-1.3) mg/dL AST 53 (17-59) U/L ALT 31 (4-49) U/L Alkaline Phosphatase 68 (38-126) U/L Total Protein 6.9 (6.3-8.2) g/dL Albumin 4.1 (3.5-5.0) g/dL Disposition Clinical Impression: Allergic reaction, Hives of unknown origin Disposition: HOME SELF-CARE Condition: Stable Instructions (If sedation given, give patient instructions): Urticaria (ED), Anaphylaxis (ED), Allergies (ED) Additional Instructions: Please complete Medrol Dosepak as prescribed. Do not take any other NSAIDs while taking Medrol dose pack. You have been prescribed an EpiPen to utilize if allergic reaction reoccurs and is severe. Avoid any new soaps or detergents or new medications until the source of your ALLERGIC response can be identified. Please follow-up with your primary care provider. Please return to the Emergency Department if symptoms worsen or any other concerns. Prescriptions: EPINEPHrine (Auto Inject) [Epipen] 0.3 mg IM ONCE PRN 1 Days #1 each PRN Reason: Anaphylaxis methylPREDNISolone Dose Pack [Medrol Dose Pack] 4 mg PO DIRECTED #21 tab Is patient prescribed a controlled substance at d/c from ED?: No Referrals: Nonstaff,Physician [REFERRING] - 1-2 days Time of Disposition: 20:24
[2022-02-21 19:35] LABS: Albumin 4.1 g/dL (3.5-5.0); Potassium 4.6 mmol/L (3.5-5.1); Total Bilirubin 0.7 mg/dL (0.2-1.3); Total Protein 6.9 g/dL (6.3-8.2)
[2022-02-21 20:18] LABS: Band Neutrophils % 19 %; Lymphocytes # (M) 0.54 k/uL (1.0-4.8); Metamyelocytes # (M) 0.54 k/uL (0); Metamyelocytes % 2 %; Monocytes # (M) 1.35 k/uL (0-1.0); Myelocytes # (M) 0.27 k/uL (0); Myelocytes % 1 %; Neutrophils % (M) 73 %; Nucleated Red Blood Cells 0 /100 WBC (0-0); Total Cells Counted 200; Toxic Vacuolation Present
[2022-02-21 20:19] LABS: RBC Morphology Normal; Toxic Granulation Present
[2022-02-21 20:22] LABS: Platelet Count 293 k/uL (150-450)
[2022-02-21 21:06] VITALS: BP 129/95; PULSE 104; RESP 13
== END 2022-02-21 21:03 | disposition home or self-care (01) ==
LOC: SUPCPDRO 17:47 → EC 17:47
DX: T78.40XA Allergy, unspecified, initial encounter (principal); R21 Rash and other nonspecific skin eruption; F17.200 Nicotine dependence, unspecified, uncomplicated; Z88.0 Allergy status to penicillin
CPT/HCPCS: 36415; 80053; 85025; 99283; 96374; 96375; J2930; 96361

== ENCOUNTER 2024-08-07 16:04 | Emergency (ER) | payer OTHER ==
--- NOTE | 2024-08-07 16:36 | ED ---
ENT HPI - General Chief complaint: Dental/Oral Stated complaint: dental pain Time Seen by Provider: 08/07/24 16:32 Source: patient, RN notes reviewed Mode of arrival: ambulatory Limitations: no limitations - History of Present Illness Initial comments: 39-year-old male presenting for right-sided dental pain x 2 days. States he recently felt a crack in his right lower molar when he was eating and believes he fractured his tooth. States he began to have pain and swelling near the tooth 2 days ago. Denies difficulty breathing or swallowing. Denies fever, nausea, vomiting. Denies neck or tongue swelling. - Related Data Previous Rx's Medication Instructions Recorded Ibuprofen [Motrin] 400 mg PO Q6HR PRN tab 11/29/20 Loperamide [Imodium] 2 mg PO QID PRN cap 11/29/20 Melatonin 5 mg PO HS 30 Days tablet 11/29/20 Nicotine 14Mg/24Hr Patch [Habitrol] 1 patch TRANSDERM DAILY 14 Days 11/29/20 patch OLANZapine [ZyPREXA] 10 mg PO HS 30 Days tab 11/29/20 hydrOXYzine pamoate [Vistaril] 25 mg PO BID PRN 14 Days cap 11/29/20 traZODone HCL [Desyrel] 50 mg PO HS PRN 14 Days tab 11/29/20 EPINEPHrine (Auto Inject) [Epipen] 0.3 mg IM ONCE PRN 1 Days #1 each 02/21/22 methylPREDNISolone Dose Pack 4 mg PO DIRECTED #21 tab 02/21/22 [Medrol Dose Pack] clindamycin HCL 300 mg PO QID #40 cap 08/07/24 Allergies Allergy/AdvReac Type Severity Reaction Status Date / Time Penicillins Allergy Unknown Verified 08/07/24 16:11 Review of Systems ROS Statement: Those systems with pertinent positive or pertinent negative responses have been documented in the HPI. ROS Other: All systems not noted in ROS Statement are negative. Past Medical History Past Medical History: No Reported History History of Any Multi-Drug Resistant Organisms: None Reported Past Surgical History: No Surgical Hx Reported Past Anesthesia/Blood Transfusion Reactions: No Reported Reaction Past Psychological History: No Psychological Hx Reported Smoking Status: Current every day smoker Past Alcohol Use History: None Reported Past Drug Use History: None Reported - Past Family History family Family Medical History: No Reported History General Exam Limitations: no limitations General appearance: alert, in no apparent distress Head exam: Present: atraumatic, normocephalic, normal inspection Eye exam: Present: normal appearance, PERRL, EOMI. Absent: scleral icterus, conjunctival injection, periorbital swelling ENT exam: Present: mucous membranes moist. Absent: normal exam (Diffuse dental caries throughout. There is a fractured right lower molar with no palpable or fluctuant abscess, no drainage or erythema) Neck exam: Present: normal inspection. Absent: tenderness, meningismus, lymphadenopathy Respiratory exam: Present: normal lung sounds bilaterally. Absent: respiratory distress, wheezes, rales, rhonchi, stridor Cardiovascular Exam: Present: regular rate, normal rhythm, normal heart sounds. Absent: systolic murmur, diastolic murmur, rubs, gallop, clicks Neurological exam: Present: alert, oriented X3 Psychiatric exam: Present: normal affect, normal mood Skin exam: Present: warm, dry, intact, normal color. Absent: rash Course Vital Signs 08/07/24 16:09 Temperature 97.8 F Pulse Rate 91 Respiratory 19 Rate Blood Pressure 134/97 O2 Sat by Pulse 100 Oximetry Medical Decision Making - Medical Decision Making Was pt. sent in by a medical professional or institution (, PA, ASSORTMENT PLANNER, urgent care, hospital, or alf...) When possible be specific @ -No Did you speak to anyone other than the patient for history (EMS, parent, family, police, friend...)? What history was obtained from this source @ -No Did you review nursing and triage notes (agree or disagree)? Why? @ -I reviewed and agree with nursing and triage notes Were old charts reviewed (outside hosp., previous admission, EMS record, old EKG, old radiological studies, urgent care reports/EKG's, alf records)? Report findings @ -No old charts were reviewed Differential Diagnosis (chest pain, altered mental status, abdominal pain women, abdominal pain men, vaginal bleeding, weakness, fever, dyspnea, syncope, headache, dizziness, GI bleed, back pain, seizure, CVA, palpatations, mental health, musculoskeletal)? @ -Dental abscess, dental infection, gingivitis, tooth fracture, Evan's angina EKG interpreted by me (3pts min.). @ -None X-rays interpreted by me (1pt min.). @ -None done CT interpreted by me (1pt min.). @ -None done U/S interpreted by me (1pt. min.). @ -None done What testing was considered but not performed or refused? (CT, X-rays, U/S, labs)? Why? @ -None What meds were considered but not given or refused? Why? @ -None Did you discuss the management of the patient with other professionals (professionals i.e. Dr., PA, ASSORTMENT PLANNER, lab, RT, psych nurse, perinatal social worker, research and evaluation manager, teacher, fourth officer, continuous pillowcase cutter)? Give summary @ -No Was smoking cessation discussed for >3mins.? @ -No Was critical care preformed (if so, how long)? @ -No Were there social determinants of health that impacted care today? How? (Homelessness, low income, unemployed, alcoholism, drug addiction, transportation, low edu. Level, literacy, decrease access to med. care, custodial, rehab)? @ -No Was there de-escalation of care discussed even if they declined (Discuss DNR or withdrawal of care, Hospice)? DNR status @ -No What co-morbidities impacted this encounter? (DM, HTN, Smoking, COPD, CAD, Cancer, CVA, ARF, Chemo, Hep., AIDS, mental health diagnosis, sleep apnea, morbid obesity)? @ -None Was patient admitted / discharged? Hospital course, mention meds given and route, prescriptions, significant lab abnormalities, going to OR and other pertinent info. @ -Discharge. 39-year-old male with right dental pain x 2 days. Patient is afebrile and well-appearing, in no acute distress. No red flag symptoms or signs of Evan's angina. No tongue or neck swelling. No fluctuant abscess present. Provided with dose of IM Toradol for supportive care. Patient will be provided with outpatient prescription for clindamycin as patient has penicillin allergy. Advised close follow-up with dentist. Appropriate return precautions and supportive care discussed. Patient is agreeable to plan. Case was discussed with my ED attending Dr. Mcdaniel. Undiagnosed new problem with uncertain prognosis? @ -No Drug Therapy requiring intensive monitoring for toxicity (Heparin, Nitro, Insulin, Cardizem)? @ -No Were any procedures done? @ -No Diagnosis/symptom? @ -Dental infection Acute, or Chronic, or Acute on Chronic? @ -Acute Uncomplicated (without systemic symptoms) or Complicated (systemic symptoms)? @ -Uncomplicated Side effects of treatment? @ -No Exacerbation, Progression, or Severe Exacerbation? @ -No Poses a threat to life or bodily function? How? (Chest pain, [place], [place], pneumonia, PE, COPD, DKA, ARF, appy, cholecystitis, CVA, Diverticulitis, Homicidal, Suicidal, threat to staff... and all critical care pts) @ -No Disposition Clinical Impression: Dental infection Disposition: HOME SELF-CARE Condition: Stable Instructions (If sedation given, give patient instructions): Toothache (ED) Additional Instructions: Take clindamycin as prescribed. Alternate Tylenol and ibuprofen every 6 hours for pain. Apply ice to the affected area. Follow-up with your dentist on Friday. Please return to the Emergency Department if symptoms worsen or any other concerns. Prescriptions: clindamycin HCL 300 mg PO QID #40 cap Is patient prescribed a controlled substance at d/c from ED?: No Referrals: None,Stated [Primary Care Provider] - 1-2 days Forms: Area PCPs Time of Disposition: 16:44
[2024-08-07] MEDS: CLINDAMYCIN 150 MG CAP PO STA (16:47)
[2024-08-07] MEDS: KETOROLAC 15 MG/ML 1 ML VIAL IM STA (16:48)
[2024-08-07 17:16] VITALS: BP 129/87; PULSE 88; RESP 18; TEMP 98
== END 2024-08-07 18:30 | disposition home or self-care (01) ==
LOC: EC 16:04
DX: K04.7 Periapical abscess without sinus (principal); F17.200 Nicotine dependence, unspecified, uncomplicated; Z88.0 Allergy status to penicillin
CPT/HCPCS: 99282; 96372; J1885

== ENCOUNTER 2024-09-14 17:34 | Emergency (ER) | payer OTHER ==
--- NOTE | 2024-09-14 17:59 | ED ---
General Adult HPI - General Chief complaint: Skin/Abscess/Foreign Body Stated complaint: tick Time Seen by Provider: 09/14/24 17:41 Source: patient Mode of arrival: ambulatory Limitations: no limitations - History of Present Illness Initial comments: 39-year-old male presenting with a tick on the right side of his neck. He reports it has been there for about a week to a week and a half. Patient thought that this was a mole but today in the mirror saw some legs and panicked so he came to the ER. He has not tried to remove it. He has had no rashes. No fever, chills, fatigue, muscle aches. No other complaints. - Related Data Previous Rx's Medication Instructions Recorded Ibuprofen [Motrin] 400 mg PO Q6HR PRN tab 11/29/20 Loperamide [Imodium] 2 mg PO QID PRN cap 11/29/20 Melatonin 5 mg PO HS 30 Days tablet 11/29/20 Nicotine 14Mg/24Hr Patch [Habitrol] 1 patch TRANSDERM DAILY 14 Days 11/29/20 patch OLANZapine [ZyPREXA] 10 mg PO HS 30 Days tab 11/29/20 hydrOXYzine pamoate [Vistaril] 25 mg PO BID PRN 14 Days cap 11/29/20 traZODone HCL [Desyrel] 50 mg PO HS PRN 14 Days tab 11/29/20 EPINEPHrine (Auto Inject) [Epipen] 0.3 mg IM ONCE PRN 1 Days #1 each 02/21/22 methylPREDNISolone Dose Pack 4 mg PO DIRECTED #21 tab 02/21/22 [Medrol Dose Pack] clindamycin HCL 300 mg PO QID #40 cap 08/07/24 Allergies Allergy/AdvReac Type Severity Reaction Status Date / Time Penicillins Allergy Unknown Verified 09/14/24 17:40 Review of Systems ROS Statement: Those systems with pertinent positive or pertinent negative responses have been documented in the HPI. ROS Other: All systems not noted in ROS Statement are negative. Past Medical History Past Medical History: No Reported History History of Any Multi-Drug Resistant Organisms: None Reported Past Surgical History: No Surgical Hx Reported Past Anesthesia/Blood Transfusion Reactions: No Reported Reaction Past Psychological History: No Psychological Hx Reported Smoking Status: Current every day smoker Past Alcohol Use History: None Reported Past Drug Use History: None Reported - Past Family History family Family Medical History: No Reported History General Exam Limitations: no limitations General appearance: alert, in no apparent distress Head exam: Present: atraumatic, normocephalic, normal inspection Eye exam: Present: normal appearance, EOMI Neck exam: Present: normal inspection. Absent: meningismus Respiratory exam: Absent: respiratory distress Cardiovascular Exam: Present: regular rate Neurological exam: Present: alert, oriented X3 Psychiatric exam: Present: normal affect, normal mood Skin exam: Present: warm, dry, normal color Course Vital Signs 09/14/24 09/14/24 17:34 18:28 Temperature 98.0 F 98.1 F Pulse Rate 68 74 Respiratory 22 19 Rate Blood Pressure 119/87 120/84 O2 Sat by Pulse 99 99 Oximetry Medical Decision Making - Medical Decision Making Was pt. sent in by a medical professional or institution (KATY Umaña, AUTO CARE CENTER MANAGER, urgent care, hospital, or [facility]...) When possible be specific @ -No Did you speak to anyone other than the patient for history (EMS, parent, family, police, friend...)? What history was obtained from this source @ -No Did you review nursing and triage notes (agree or disagree)? Why? @ -I reviewed and agree with nursing and triage notes Were old charts reviewed (outside hosp., previous admission, EMS record, old EKG, old radiological studies, urgent care reports/EKG's, [facility] records)? Report findings @ -No old charts were reviewed Differential Diagnosis (chest pain, altered mental status, abdominal pain women, abdominal pain men, vaginal bleeding, weakness, fever, dyspnea, syncope, headache, dizziness, GI bleed, back pain, seizure, CVA, palpatations, mental health, musculoskeletal)? @ -Differential includes uncomplicated tick bite, Lyme disease, Wilson spotted fever, not an all-inclusive list EKG interpreted by me (3pts min.). @ -As above X-rays interpreted by me (1pt min.). @ -None done CT interpreted by me (1pt min.). @ -None done U/S interpreted by me (1pt. min.). @ -None done What testing was considered but not performed or refused? (CT, X-rays, U/S, labs)? Why? @ -None What meds were considered but not given or refused? Why? @ -None Did you discuss the management of the patient with other professionals (professionals i.e. DrPaul, PA, AUTO CARE CENTER MANAGER, lab, RT, psych nurse, social service manager, thread clipper, teacher, protocol officer, case repairer)? Give summary @ -No Was smoking cessation discussed for >3mins.? @ -No Was critical care preformed (if so, how long)? @ -No Were there social determinants of health that impacted care today? How? (Homelessness, low income, unemployed, alcoholism, drug addiction, transportation, low edu. Level, literacy, decrease access to med. care, snf, rehab)? @ -No Was there de-escalation of care discussed even if they declined (Discuss DNR or withdrawal of care, Hospice)? DNR status @ -No What co-morbidities impacted this encounter? (DM, HTN, Smoking, COPD, CAD, Cancer, CVA, ARF, Chemo, Hep., AIDS, mental health diagnosis, sleep apnea, morbid obesity)? @ -None Was patient admitted / discharged? Hospital course, mention meds given and route, prescriptions, significant lab abnormalities, going to OR and other pertinent info. @ -39-year-old male presenting with chief complaint of tick bite. Patient reports that the tick has been present for about a week or so, he thought that it was a mole. Present on his neck. The tick was removed in triage and placed into a specimen cup. Patient is given the one-time prophylactic dose of doxycycline 200 mg here in the ER. He is educated on the bull's-eye rash to look for as well as other symptoms such as fever muscle aches and fatigue. Follow-up with PCP. Report back to ER with any new or worsening symptoms. Discussed return parameters and answered all questions. Patient conveyed verbal understanding and agreed to the plan. I discussed this case in detail with my attending Dr. Hendricks Undiagnosed new problem with uncertain prognosis? @ -No Drug Therapy requiring intensive monitoring for toxicity (Heparin, Nitro, Insulin, Cardizem)? @ -No Were any procedures done? @ -No Diagnosis/symptom? @ -Tick bite Acute, or Chronic, or Acute on Chronic? @ -Acute Uncomplicated (without systemic symptoms) or Complicated (systemic symptoms)? @ -Uncomplicated Side effects of treatment? @ -No Exacerbation, Progression, or Severe Exacerbation? @ -No Poses a threat to life or bodily function? How? (Chest pain, [place], [place], pneumonia, PE, COPD, DKA, ARF, appy, cholecystitis, CVA, Diverticulitis, Homicidal, Suicidal, threat to staff... and all critical care pts) @ -No Disposition Clinical Impression: Tick bite Disposition: HOME SELF-CARE Condition: Good Instructions (If sedation given, give patient instructions): Tick Bite (ED) Additional Instructions: Follow-up with PCP. Report back to ER with any new or worsening symptoms. Watch for a bull's-eye rash, this may indicate that you have Lyme disease. Other symptoms to monitor for also include but are not limited to fever, body aches, fatigue. Today you were given a single dose of doxycycline 200 mg to prevent tickborne illness Is patient prescribed a controlled substance at d/c from ED?: No Referrals: None,Stated [Primary Care Provider] - 1-2 days Time of Disposition: 17:58
[2024-09-14] MEDS: DOXYCYCLINE 100 MG TABLET PO ONE ×2 (18:21)
[2024-09-14 18:30] VITALS: BP 120/84; PULSE 74; RESP 19; TEMP 98.1
== END 2024-09-14 18:29 | disposition home or self-care (01) ==
LOC: EC 17:34
DX: S10.96XA Insect bite of unspecified part of neck, initial encounter (principal); F17.200 Nicotine dependence, unspecified, uncomplicated; Z88.0 Allergy status to penicillin; W57.XXXA Bitten or stung by nonvenomous insect and other nonvenomous arthropods, initial encounter
CPT/HCPCS: 99282

== ENCOUNTER 2024-10-26 18:20 | Emergency (ER) | payer OTHER ==
--- NOTE | 2024-10-26 20:45 | ED ---
General Adult HPI - General Chief complaint: Dental/Oral Stated complaint: Dental pain Time Seen by Provider: 10/26/24 19:10 Source: patient, RN notes reviewed Mode of arrival: ambulatory Limitations: no limitations - History of Present Illness Initial comments: 39-year-old male presents to the emergency department for evaluation of right lower dental pain. He notes that this started 4 to 5 days ago. He does note that this occurred about 3 months ago as well and was placed on antibiotics at the time. He did have improvement in his symptoms but notes recurrence 4 to 5 days ago. He did not follow-up with his dentist at that time. He denies any fever, chills. - Related Data Previous Rx's Medication Instructions Recorded Ibuprofen [Motrin] 400 mg PO Q6HR PRN tab 11/29/20 Loperamide [Imodium] 2 mg PO QID PRN cap 11/29/20 Melatonin 5 mg PO HS 30 Days tablet 11/29/20 Nicotine 14Mg/24Hr Patch [Habitrol] 1 patch TRANSDERM DAILY 14 Days 11/29/20 patch OLANZapine [ZyPREXA] 10 mg PO HS 30 Days tab 11/29/20 hydrOXYzine pamoate [Vistaril] 25 mg PO BID PRN 14 Days cap 11/29/20 traZODone HCL [Desyrel] 50 mg PO HS PRN 14 Days tab 11/29/20 EPINEPHrine (Auto Inject) [Epipen] 0.3 mg IM ONCE PRN 1 Days #1 each 02/21/22 methylPREDNISolone Dose Pack 4 mg PO DIRECTED #21 tab 02/21/22 [Medrol Dose Pack] clindamycin HCL 300 mg PO QID #40 cap 08/07/24 Amoxic-Pot Clav 875-125Mg 1 tab PO Q12HR #20 tab 10/26/24 [Augmentin 875-125] Allergies Allergy/AdvReac Type Severity Reaction Status Date / Time Penicillins Allergy Unknown Verified 10/26/24 18:48 Review of Systems ROS Statement: Those systems with pertinent positive or pertinent negative responses have been documented in the HPI. ROS Other: All systems not noted in ROS Statement are negative. Past Medical History Past Medical History: No Reported History History of Any Multi-Drug Resistant Organisms: None Reported Past Surgical History: No Surgical Hx Reported Past Anesthesia/Blood Transfusion Reactions: No Reported Reaction Past Psychological History: No Psychological Hx Reported Smoking Status: Current every day smoker Past Alcohol Use History: None Reported Past Drug Use History: None Reported - Past Family History family Family Medical History: No Reported History General Exam Limitations: no limitations General appearance: alert, in no apparent distress Head exam: Present: atraumatic, normocephalic, normal inspection Eye exam: Present: normal appearance, PERRL, EOMI. Absent: scleral icterus, conjunctival injection, periorbital swelling ENT exam: Present: mucous membranes moist, other (Overall poor dentition, no visible drainable abscess) Neck exam: Present: normal inspection. Absent: tenderness, meningismus, lymphadenopathy Respiratory exam: Present: normal lung sounds bilaterally. Absent: respiratory distress, wheezes, rales, rhonchi, stridor Cardiovascular Exam: Present: regular rate, normal rhythm, normal heart sounds. Absent: systolic murmur, diastolic murmur, rubs, gallop, clicks Extremities exam: Present: normal inspection, full ROM, normal capillary refill. Absent: tenderness, pedal edema, joint swelling, calf tenderness Neurological exam: Present: alert, oriented X3 Psychiatric exam: Present: normal affect, normal mood Skin exam: Present: warm, dry, intact, normal color. Absent: rash Course Vital Signs 10/26/24 10/26/24 10/26/24 18:44 20:47 21:12 Temperature 97.9 F 97.8 F Pulse Rate 65 77 Respiratory 22 18 16 Rate Blood Pressure 94/57 98/57 O2 Sat by Pulse 97 100 Oximetry Medical Decision Making - Medical Decision Making Was pt. sent in by a medical professional or institution (, PA, BUSINESS ASST, urgent care, hospital, or long-term...) When possible be specific @ -No Did you speak to anyone other than the patient for history (EMS, parent, family, police, friend...)? What history was obtained from this source @ -No Did you review nursing and triage notes (agree or disagree)? Why? @ -I reviewed and agree with nursing and triage notes Were old charts reviewed (outside hosp., previous admission, EMS record, old EKG, old radiological studies, urgent care reports/EKG's, long-term records)? Report findings @ -No old charts were reviewed Differential Diagnosis (chest pain, altered mental status, abdominal pain women, abdominal pain men, vaginal bleeding, weakness, fever, dyspnea, syncope, headache, dizziness, GI bleed, back pain, seizure, CVA, palpatations, mental health, musculoskeletal)? @ -Dental infection, dental abscess, dental appliance issue, parotiditis, strep throat, this list is not all inclusive EKG interpreted by me (3pts min.). @ -None X-rays interpreted by me (1pt min.). @ -None done CT interpreted by me (1pt min.). @ -None done U/S interpreted by me (1pt. min.). @ -None done What testing was considered but not performed or refused? (CT, X-rays, U/S, labs)? Why? @ -None What meds were considered but not given or refused? Why? @ -None Did you discuss the management of the patient with other professionals (professionals i.e. , PA, BUSINESS ASST, lab, RT, psych nurse, social services coordinator, death surveys coder, teacher, psychological operations officer, supervisor case loading)? Give summary @ -No Was smoking cessation discussed for >3mins.? @ -No Was critical care preformed (if so, how long)? @ -No Were there social determinants of health that impacted care today? How? (Homelessness, low income, unemployed, alcoholism, drug addiction, transportation, low edu. Level, literacy, decrease access to med. care, fdc, rehab)? @ -No Was there de-escalation of care discussed even if they declined (Discuss DNR or withdrawal of care, Hospice)? DNR status @ -No What co-morbidities impacted this encounter? (DM, HTN, Smoking, COPD, CAD, Cancer, CVA, ARF, Chemo, Hep., AIDS, mental health diagnosis, sleep apnea, morbid obesity)? @ -None Was patient admitted / discharged? Hospital course, mention meds given and route, prescriptions, significant lab abnormalities, going to OR and other pertinent info. @ -Discharge. Patient presented emergency department for evaluation of dental pain. There is no visible drainable abscess. Patient will be started on antibiotics. Advised follow-up to dentist. He is understanding agreeable plan. Patient stable at time of discharge. Case discussed with Dr. Mcdaniel. Undiagnosed new problem with uncertain prognosis? @ -No Drug Therapy requiring intensive monitoring for toxicity (Heparin, Nitro, Insulin, Cardizem)? @ -No Were any procedures done? @ -No Diagnosis/symptom? @ -Dental pain Acute, or Chronic, or Acute on Chronic? @ -Acute Uncomplicated (without systemic symptoms) or Complicated (systemic symptoms)? @ -Uncomplicated Side effects of treatment? @ -No Exacerbation, Progression, or Severe Exacerbation? @ -No Poses a threat to life or bodily function? How? (Chest pain, [place], [place], pneumonia, PE, COPD, DKA, ARF, appy, cholecystitis, CVA, Diverticulitis, Homicidal, Suicidal, threat to staff... and all critical care pts) @ -No Disposition Clinical Impression: Dental abscess, Toothache Disposition: HOME SELF-CARE Condition: Stable Instructions (If sedation given, give patient instructions): Toothache (ED) Additional Instructions: Please cook pickled meat antibiotics and take to completion. Please follow-up with your dentist. Return to the emergency department for new or worsening symptoms. Prescriptions: Amoxic-Pot Clav 875-125Mg [Augmentin 875-125] 1 tab PO Q12HR #20 tab Is patient prescribed a controlled substance at d/c from ED?: No Referrals: None,Stated [Primary Care Provider] - 1-2 days
[2024-10-26 20:50] VITALS: BP 98/57; PULSE 77; TEMP 97.8
[2024-10-26 21:12] VITALS: RESP 16
== END 2024-10-26 21:12 | disposition home or self-care (01) ==
LOC: EC 18:20
DX: K04.7 Periapical abscess without sinus (principal); F17.200 Nicotine dependence, unspecified, uncomplicated; Z88.0 Allergy status to penicillin
CPT/HCPCS: 99282